=== PATIENT | female | born 1940 | race Caucasian/White ===

== ENCOUNTER 2016-03-28 17:39 | Emergency (ER) | payer MEDICARE, OTHER ==
[~2016-03-28] VITALS: Ht 157.5 cm; Wt 109.1 kg
[~2016-03-28 17:39] MED LIST: ACCUPRIL20TAB PO; AFRIN NASAL SPR15 ML NS; AFRIN NASAL SPRA3 ML NS; ALBUTEROL0.83 MG/ML IH; ALDACTONE 25MG25 M1 PO; ASPIRIN 81M81 MG/TA2 PO; ASPIRIN E.C. 8181 MG PO; BYDUREON P2 MG/0.65; CLARITIN 1010 MG/TAB PO; COREG 6.256.25 MG/TA PO; COREG12.5 MG PO; COZAAR 50MG50 MG/TAB PO; COZAAR100 MG PO; CRESTOR20 MG PO; CRESTOR40 MG PO; DETROL LA 2 MG2 MG PO; DEXILANT60 MG PO; DULERA1 AR1 IH; ENULOSE10 GM/151 PO; EPIPEN 2-PAK1 MG/ML IM; FLEXERIL5 MG PO; FLONASE NASAL S16 GM NS; FOSAMAX70 MG/75 M PO; GLUCAGEN HYPOKIT1 MG IJ; GLUCAGEN1 MG IJ; GLUCAGON EMERGEN1 M1 IJ; GLUCAGON EMERGEN1 MG IJ; GLUCOSAMINE500 M2 PO; GLUCOSE4 G1 PO; HCTZ 25MG TAB25 MG PO; IMODIUM 2MG CAPS2 MG PO; IMODIUM A-D2 MG PO; JANUVIA 100MG100 MG PO; LASIX 40MG TABL40 MG PO; LECITHIN PO; LEVEMIR FLEX100 U/ML SQ; LEVEMIR FLEXPEN SC; LEVEMIR100 U/ML SC; LEVEMIR100 U/ML SQ; LEXAPRO 10MG10 MG PO; LIDODERM 5% PATC1 EA TP; LOVAZA1 GM PO; MACRODANTIN100 PO; MILK OF MA400 MG/5 M PO; MOBIC 7.5MG7.5 MG PO; MUCINEX 60600 MG/TA1 PO; MYLANTA 150 ML150 M1 PO; NASACORT OTC NS; NASAL 30 ML30 M1 NS; NASAL SALINE 4444 ML NS; NASONEX SPRAY17 GM NS; NATURE'S BLEN1200 MG PO; NORCO 325 MG-51 TAB; NORCO 325 MG-51 TAB PO; NOVOLOG FLEX100 U/ML; NOVOLOG FLEX100 U/ML SQ; NYSTATIN POWDER15 GM TOP; PATANASE0.6% NS; PRESERVISION1 SGL PO; PRILOSEC 20MG20 MG PO; PROCARDIA XL90 MG PO; PROVENTIL0.09 MG/A1 IH; ROBITUSSIN A-C S1 M1 PO; RT ADVAIR 228 DISKUS IH; RT SPIRIVA18 MCG IH; SINGULAIR 110 MG/TAB PO; TEKTURNA300 MG PO; TRADJENTA5 MG PO; TRANDATE 100MG100 MG PO; TUDORZA IH; TYLENOL 325MG325 MG PO; TYLENOL ARTHRI650 M1 PO; VENTOLIN0.09 MG IH; VITAMIN B COMPL1 T16 PO; VITAMIN D 1001000 IU PO; VITAMIN D1000 IU PO; VITAMIN D32000 I1 PO; VOLTAREN GEL 1%1 TU TP; XYAL5 MG PO; XYZAL5 MG PO; ZANTAC 150150 MG; ZITHROMAX 250M250 MG PO; ZITHROMAX Z PA250 MG PO; ZYRTEC 10MG10 MG PO; [UNRECOGNIZED DRUG - OTHER]; [UNRECOGNIZED DRUG - OTHER] PO
[2016-03-28 17:42] VITALS: TEMP 98.6
[2016-03-28 18:24] LABS: HEMATOCRIT 38.3 % (37.0-47.0); HEMOGLOBIN 12.9 g/dl (12.5-16.0); MEAN CELL VOLUME 86 fl (80.0-100.0); MEAN CORPUSCULAR HEMOGLOBIN 29 pg (27.0-31.0); MEAN CORPUSCULAR HGB CONC 34 g/dl (33.0-37.0); MEAN PLATELET VOLUME 9.7 fl (7.4-10.4); PLATELET COUNT 234 K/mm3 (130-400); RED BLOOD COUNT 4.46 M/mm3 (4.10-5.30); WHITE BLOOD COUNT 8.5 K/mm3 (4.8-10.8)
[2016-03-28 18:25] LABS: ADD PATHOLOGY DIFF REVIEW NO
[2016-03-28 18:33] LABS: BILIRUBIN,TOTAL 0.6 mg/dL (0.0-1.0); C-REACTIVE PROTEIN 0.7 mg/dL (0.0-0.9); CREATININE, serum 1.58 mg/dL (0.52-1.25); POTASSIUM 4.2 mmol/L (3.4-5.0); TOTAL PROTEIN 7.4 gm/dL (6.4-8.2)
[2016-03-28 18:38] LABS: INFLUENZA B NEGATIVE
[2016-03-28 18:55] LABS: BAND 7 % (0-10); BASOPHIL 4 % (0-2); NEUTROPHILS 56 % (42.0-75.2); TOTAL CELLS COUNTED 100
[2016-03-28 18:57] LABS: ANISOCYTOSIS 1+; MICROCYTOSIS 1+; POIKILOCYTOSIS 1+
[2016-03-28] MEDS ORDERED: PREDNISONE20 MG PO (19:52)
[2016-03-28] MEDS ORDERED: NORCO 325 MG-51 TAB PO (19:52)
[2016-03-28] MEDS ORDERED: ZITHROMAX 250M250 MG PO (19:52)
[2016-03-28 20:17] VITALS: BP 154/71; PULSE 66
== END 2016-03-28 20:19 | disposition home or self-care (01) ==
LOC: COL.ER 17:39
PROVIDERS: Emergency Medicine
DX: J44.0 Chronic obstructive pulmonary disease with (acute) lower respiratory infection (principal); J20.9 Acute bronchitis, unspecified; J45.909 Unspecified asthma, uncomplicated; E11.9 Type 2 diabetes mellitus without complications; I10 Essential (primary) hypertension; Z79.84 Long term (current) use of oral hypoglycemic drugs
CPT/HCPCS: J7512

== ENCOUNTER → 2016-05-17 | Outpatient (CLI) | payer MEDICARE, OTHER ==
[~2016-05-17] MED LIST changes: +ADALAT CC90 MG PO; +AEROSPAN80 MCG/Act IH; +ALMACONE 360 M360 ML PO; +AMOXICILLIN/CLA1 TA1 PO; +AMOXICILLIN875 MG PO; +ANTI-DIARRHEAL2 MG PO; +ASTELIN NASAL S34 ML NS; +BACTROBAN15 GM TOP; +COREG 25MG25 MG/TAB PO; +DENTA 5000 PLUS1.1% DT; +DETROL 2MG TAB2 MG PO; +DIFLUCAN 100MG100 MG PO; +FOSAMAX 35MG35 MG PO; +GLUCOSAMINE CHO1 TAB PO; +GLUCOSAMINE SU500 M2 PO; +MASON NATURAL2000 IU; +MIRALAX PA17 GM/Dose PO; +MONISTAT VG; +MUCINEX1200 MG PO; +NOVOLOG 100U100 U/M1 SQ; +PHENERGAN W/CO120 M1 PO; +PREDNISONE20 MG PO; +PRIL40 PO; +PROBIOTIC-SUNMARK; +REGLAN 5MG T5 MG/TAB PO; +RT ADVAIR 528 DISKUS IH; +SPIRIVA RESPIMAT4 GM IH; +VITAMIN B COMPL1 SGL PO
== END ==
LOC: COL.RAD 05:58
DX: K21.9 Gastro-esophageal reflux disease without esophagitis (principal); R06.02 Shortness of breath; R07.89 Other chest pain; F41.8 Other specified anxiety disorders
CPT/HCPCS: A9541

== ENCOUNTER 2016-10-07 13:03 | Emergency (ER) | payer MEDICARE, OTHER ==
[~2016-10-07] VITALS: Ht 157.5 cm; Wt 97.7 kg
[~2016-10-07 13:03] MED LIST changes: -ADALAT CC90 MG PO; -AEROSPAN80 MCG/Act IH; -ALMACONE 360 M360 ML PO; -AMOXICILLIN/CLA1 TA1 PO; -AMOXICILLIN875 MG PO; -ANTI-DIARRHEAL2 MG PO; -ASTELIN NASAL S34 ML NS; -BACTROBAN15 GM TOP; -COREG 25MG25 MG/TAB PO; -DENTA 5000 PLUS1.1% DT; -DETROL 2MG TAB2 MG PO; -DIFLUCAN 100MG100 MG PO; -FOSAMAX 35MG35 MG PO; -GLUCOSAMINE CHO1 TAB PO; -GLUCOSAMINE SU500 M2 PO; -MASON NATURAL2000 IU; -MIRALAX PA17 GM/Dose PO; -MONISTAT VG; -MUCINEX1200 MG PO; -NOVOLOG 100U100 U/M1 SQ; -PHENERGAN W/CO120 M1 PO; -PRIL40 PO; -PROBIOTIC-SUNMARK; -REGLAN 5MG T5 MG/TAB PO; -RT ADVAIR 528 DISKUS IH; -SPIRIVA RESPIMAT4 GM IH; -VITAMIN B COMPL1 SGL PO
[2016-10-07 13:07] VITALS: TEMP 98.1
[2016-10-07] MEDS ORDERED: AMOXICILLIN875 MG PO (13:37)
[2016-10-07] MEDS ORDERED: PRESERVISION1 SGL PO (13:39)
[2016-10-07] MEDS ORDERED: ASTELIN NASAL S34 ML NS (13:41)
[2016-10-07] MEDS ORDERED: BACTROBAN15 GM TOP (13:42)
[2016-10-07] MEDS ORDERED: DETROL 2MG TAB2 MG PO (13:44)
[2016-10-07] MEDS ORDERED: DENTA 5000 PLUS1.1% DT (13:45)
[2016-10-07] MEDS ORDERED: DIFLUCAN 100MG100 MG PO (13:46)
[2016-10-07] MEDS ORDERED: AEROSPAN80 MCG/Act IH (13:55)
[2016-10-07] MEDS ORDERED: GLUCOSAMINE SU500 M2 PO (13:57)
[2016-10-07] MEDS ORDERED: ANTI-DIARRHEAL2 MG PO (13:58)
[2016-10-07] MEDS ORDERED: MONISTAT VG (14:02)
[2016-10-07] MEDS ORDERED: MUCINEX 60600 MG/TA1 PO (14:04)
[2016-10-07] MEDS ORDERED: NOVOLOG FLEX100 U/ML SQ (14:04)
[2016-10-07] MEDS ORDERED: PRIL40 PO (14:05)
[2016-10-07] MEDS ORDERED: PROBIOTIC-SUNMARK (14:05)
[2016-10-07 14:52] VITALS: BP 136/60; PULSE 70
== END 2016-10-07 14:53 | disposition home or self-care (01) ==
LOC: COL.ER 13:03
DX: S83.91XA Sprain of unspecified site of right knee, initial encounter (principal); I10 Essential (primary) hypertension; E11.9 Type 2 diabetes mellitus without complications; J44.9 Chronic obstructive pulmonary disease, unspecified; M19.90 Unspecified osteoarthritis, unspecified site; Z79.4 Long term (current) use of insulin; X50.1XXA Overexertion from prolonged static or awkward postures, initial encounter

== ENCOUNTER 2016-10-23 10:23 | Inpatient (IN) | payer MEDICARE, OTHER ==
[~2016-10-23] VITALS: Ht 157.5 cm; Wt 99.4 kg
[~2016-10-23 10:23] MED LIST changes: +AEROSPAN80 MCG/Act IH; +AMOXICILLIN875 MG PO; +ANTI-DIARRHEAL2 MG PO; +ASTELIN NASAL S34 ML NS; +BACTROBAN15 GM TOP; +DENTA 5000 PLUS1.1% DT; +DETROL 2MG TAB2 MG PO; +DIFLUCAN 100MG100 MG PO; +GLUCOSAMINE SU500 M2 PO; +MONISTAT VG; +PRIL40 PO; +PROBIOTIC-SUNMARK
[2016-10-23 11:36] LABS: MEAN CELL VOLUME 91 fl (80.0-100.0); MEAN CORPUSCULAR HGB CONC 32 g/dl (33.0-37.0); MEAN PLATELET VOLUME 10.1 fl (7.4-10.4); PLATELET COUNT 281 K/mm3 (130-400); RED BLOOD COUNT 4.02 M/mm3 (4.10-5.30); REDCELL DISTRIBUTION WIDTH-CV 12.7 % (11.5-14.5); WHITE BLOOD COUNT 16.1 K/mm3 (4.8-10.8)
[2016-10-23 11:41] LABS: ADD PATHOLOGY DIFF REVIEW NO; HEMATOCRIT 36.4 % (37.0-47.0); HEMOGLOBIN 11.7 g/dl (12.5-16.0); MEAN CORPUSCULAR HEMOGLOBIN 29 pg (27.0-31.0)
[2016-10-23 11:49] LABS: PH 5 (5-8); SQUAMOUS EPITHELIAL None Seen /hpf; URINE APPEARANCE Hazy; URINE BACTERIA Rare /hpf; URINE BILIRUBIN Negative (NEGATIVE); URINE BLOOD Negative (NEGATIVE); URINE COLOR Yellow; URINE GLUCOSE Negative (NEGATIVE); URINE KETONE Negative (NEGATIVE); URINE RBC 0-2 /hpf; URINE UROBILINOGEN Negative (NEGATIVE); URINE WBC 0-2 /hpf
[2016-10-23 11:50] LABS: ALBUMIN 3.6 gm/dL (3.5-5.0); BILIRUBIN,TOTAL 0.6 mg/dL (0.0-1.0); C-REACTIVE PROTEIN 8.5 mg/dL (0.0-0.9); CALCIUM 9.7 mg/dL (8.4-10.2); CREATININE, serum 1.57 mg/dL (0.52-1.25); POTASSIUM 3.7 mmol/L (3.4-5.0); TOTAL PROTEIN 7.1 gm/dL (6.4-8.2)
[2016-10-23 11:58] LABS: INFLUENZA B NEGATIVE
[2016-10-23 13:35] LABS: BAND 42 % (0-10); METAMYELOCYTE 2 % (0-0); MYELOCYTE 4 % (0-0); NEUTROPHILS 37 % (42.0-75.2); PLATELET ESTIMATE NORMAL (NORMAL); TOTAL CELLS COUNTED 100
[2016-10-23] MEDS ORDERED: FLONASE NASAL S16 GM NS (13:37)
[2016-10-23] MEDS ORDERED: MIRALAX PA17 GM/Dose PO (13:59)
[2016-10-23] MEDS ORDERED: MOBIC 7.5MG7.5 MG PO (14:00)
[2016-10-23] MEDS ORDERED: REGLAN 5MG T5 MG/TAB PO (14:01)
[2016-10-23] MEDS ORDERED: MUCINEX1200 MG PO (14:02)
[2016-10-23] MEDS ORDERED: ADALAT CC90 MG PO (14:02)
[2016-10-23] MEDS ORDERED: NOVOLOG 100U100 U/M1 SQ (14:03)
[2016-10-23 15:38] VITALS: BP 126/50; PULSE 89; TEMP 99.9
[2016-10-23 21:17] VITALS: BP 92/59; PULSE 85; TEMP 100.6
[2016-10-23 23:35] VITALS: BP 126/45; PULSE 79; TEMP 99
[2016-10-24] VITALS (7 sets, daily range): BP systolic 103–147; BP diastolic 44–96; PULSE 66–113; TEMP 97.4–99.2
[2016-10-24] MEDS ORDERED: LEVEMIR100 U/ML SQ (06:58)
[2016-10-24 09:12] LABS: BASO % 0.2 % (0.0-2.0); EOS # 0.1 (0.0-0.7); EOS % 1.3 % (0-4.0); GRAN # 6.4 (1.4-6.5); GRAN % 62.9 % (42.2-75.2); LYMPH # 2.1 (1.2-3.4); LYMPH % 20.6 % (20.0-51.0); MEAN CELL VOLUME 93 fl (80.0-100.0); MEAN CORPUSCULAR HGB CONC 31 g/dl (33.0-37.0); MEAN PLATELET VOLUME 9.7 fl (7.4-10.4); MONO # 1.5 (0.1-0.6); MONO % 14.6 % (1.7-9.3); PLATELET COUNT 232 K/mm3 (130-400); RED BLOOD COUNT 3.44 M/mm3 (4.10-5.30); REDCELL DISTRIBUTION WIDTH-CV 12.9 % (11.5-14.5); WHITE BLOOD COUNT 10.2 K/mm3 (4.8-10.8)
[2016-10-24 09:15] LABS: HEMATOCRIT 31.9 % (37.0-47.0); MEAN CORPUSCULAR HEMOGLOBIN 29 pg (27.0-31.0)
[2016-10-24 09:17] LABS: CALCIUM 8.8 mg/dL (8.4-10.2); CREATININE, serum 1.47 mg/dL (0.52-1.25); POTASSIUM 3.7 mmol/L (3.4-5.0)
[2016-10-25 04:36] VITALS: BP 126/75; PULSE 118; TEMP 98.5
[2016-10-25 06:56] LABS: BASO # 0.1 (0.0-0.2); BASO % 0.4 % (0.0-2.0); EOS # 0.3 (0.0-0.7); EOS % 2.6 % (0-4.0); GRAN # 8.2 (1.4-6.5); GRAN % 70.2 % (42.2-75.2); LYMPH # 1.8 (1.2-3.4); MEAN CELL VOLUME 91 fl (80.0-100.0); MEAN CORPUSCULAR HGB CONC 32 g/dl (33.0-37.0); MEAN PLATELET VOLUME 10.3 fl (7.4-10.4); MONO # 1.3 (0.1-0.6); MONO % 11.5 % (1.7-9.3); PLATELET COUNT 262 K/mm3 (130-400); REDCELL DISTRIBUTION WIDTH-CV 12.7 % (11.5-14.5); WHITE BLOOD COUNT 11.7 K/mm3 (4.8-10.8)
[2016-10-25 06:59] LABS: HEMATOCRIT 32.9 % (37.0-47.0); HEMOGLOBIN 10.6 g/dl (12.5-16.0); MEAN CORPUSCULAR HEMOGLOBIN 29 pg (27.0-31.0)
[2016-10-25 07:09] LABS: CALCIUM 9.2 mg/dL (8.4-10.2); CREATININE, serum 1.26 mg/dL (0.52-1.25)
[2016-10-25 07:53] VITALS: BP 121/61; PULSE 74; TEMP 98.2
[2016-10-25] MEDS ORDERED: AMOXICILLIN/CLA1 TA1 PO (10:09)
[2016-10-25] MEDS ORDERED: PHENERGAN W/CO120 M1 PO (10:10)
[2016-10-25 12:44] VITALS: BP 141/55; PULSE 73; TEMP 97.3
== END 2016-10-25 15:38 | DRG 871 ==
LOC: COL.ER 10:23 → MEDICAL 12:52
PROVIDERS: Family Medicine; Physician Assistant
DX: A41.9 Sepsis, unspecified organism (principal); J18.9 Pneumonia, unspecified organism; E87.1 Hypo-osmolality and hyponatremia; Z68.41 Body mass index [BMI] 40.0-44.9, adult; N18.3 Chronic kidney disease, stage 3 (moderate); E11.65 Type 2 diabetes mellitus with hyperglycemia; J44.9 Chronic obstructive pulmonary disease, unspecified; T38.3X1A Poisoning by insulin and oral hypoglycemic [antidiabetic] drugs, accidental (unintentional), initial encounter; E86.1 Hypovolemia; I12.9 Hypertensive chronic kidney disease with stage 1 through stage 4 chronic kidney disease, or unspecified chronic kidney disease; E11.22 Type 2 diabetes mellitus with diabetic chronic kidney disease; D64.9 Anemia, unspecified; E66.01 Morbid (severe) obesity due to excess calories; Z79.4 Long term (current) use of insulin; Z99.81 Dependence on supplemental oxygen
CPT/HCPCS: 99223-AI; 99233-AI; 99239; J0456; J0696; J1644; J1815; J7030; J7050

== ENCOUNTER 2016-11-07 11:00 | Inpatient (IN) | payer MEDICARE, OTHER ==
[2016-11-07] VITALS (402 sets, daily range): BP systolic 108–118; BP diastolic 50–98; PULSE 79–91; TEMP 98.5–98.7; O2SAT 91–98
[~2016-11-07] VITALS: Ht 157.5 cm; Wt 95.4 kg
[~2016-11-07 11:00] MED LIST changes: +ADALAT CC90 MG PO; +AMOXICILLIN/CLA1 TA1 PO; +MIRALAX PA17 GM/Dose PO; +MUCINEX1200 MG PO; +NOVOLOG 100U100 U/M1 SQ; +PHENERGAN W/CO120 M1 PO; +REGLAN 5MG T5 MG/TAB PO
[2016-11-07 12:17] LABS: BASO % 0.4 % (0.0-2.0); EOS # 0.2 (0.0-0.7); EOS % 1.5 % (0-4.0); GRAN # 6.3 (1.4-6.5); GRAN % 64.3 % (42.2-75.2); HEMATOCRIT 38.2 % (37.0-47.0); HEMOGLOBIN 12.6 g/dl (12.5-16.0); LYMPH # 2.2 (1.2-3.4); LYMPH % 22.7 % (20.0-51.0); MEAN CELL VOLUME 91 fl (80.0-100.0); MEAN CORPUSCULAR HEMOGLOBIN 30 pg (27.0-31.0); MEAN CORPUSCULAR HGB CONC 33 g/dl (33.0-37.0); MEAN PLATELET VOLUME 10.2 fl (7.4-10.4); MONO # 1.1 (0.1-0.6); MONO % 10.9 % (1.7-9.3); PLATELET COUNT 288 K/mm3 (130-400); PROTHROMBIN TIME 10.8 SECONDS (9.7-12.8); RED BLOOD COUNT 4.19 M/mm3 (4.10-5.30); REDCELL DISTRIBUTION WIDTH-CV 13.1 % (11.5-14.5); WHITE BLOOD COUNT 9.8 K/mm3 (4.8-10.8)
[2016-11-07 12:22] LABS: ADJUSTED CALCIUM 10.1 mg/dL (8.4-10.2); ALANINE AMINOTRANSFERASE 23 U/L (9-52); ALKALINE PHOSPHATASE 65 U/L (50-136); ANION GAP 13 mmol/L (7-16); BILIRUBIN,TOTAL 0.6 mg/dL (0.0-1.0); BLOOD UREA NITROGEN 44 mg/dL (7-17); CALCIUM 10.1 mg/dL (8.4-10.2); CARBON DIOXIDE 25 mmol/L (22-30); CHLORIDE 104 mmol/L (98-107); CREATINE KINASE 37 U/L (30-135); CREATININE, serum 1.41 mg/dL (0.52-1.25); GLUCOSE 103 mg/dL (74-106); LIPASE 136 U/L (23-300); POTASSIUM 3.9 mmol/L (3.4-5.0); SODIUM 142 mmol/L (137-145); TOTAL PROTEIN 7.2 gm/dL (6.4-8.2)
[2016-11-07] MEDS ORDERED: HCTZ 25MG TAB25 MG PO (12:29)
[2016-11-07] MEDS ORDERED: TRADJENTA5 MG PO (12:29)
[2016-11-07] MEDS ORDERED: MASON NATURAL2000 IU (12:29)
[2016-11-07] MEDS ORDERED: ALDACTONE 25MG25 M1 PO ×2 (12:30→14:52)
[2016-11-07] MEDS ORDERED: ENULOSE10 GM/151 PO (12:31)
[2016-11-07] MEDS ORDERED: ALMACONE 360 M360 ML PO (12:32)
[2016-11-07 12:33] LABS: B-TYPE NATRIURETIC PEPTIDE 7010 pg/mL (0-450)
[2016-11-07 12:41] LABS: TROPONIN-I < 0.012 ng/mL (0.000-0.034)
[2016-11-07 13:10] LABS: PH 5 (5-8); SQUAMOUS EPITHELIAL 0-2 /hpf; URINE APPEARANCE Hazy; URINE BACTERIA None Seen /hpf; URINE BILIRUBIN Negative (NEGATIVE); URINE BLOOD Negative (NEGATIVE); URINE COLOR Yellow; URINE GLUCOSE Negative (NEGATIVE); URINE KETONE Negative (NEGATIVE); URINE RBC 0-2 /hpf; URINE UROBILINOGEN Negative (NEGATIVE); URINE WBC 0-2 /hpf
[2016-11-07] MEDS ORDERED: COREG 25MG25 MG/TAB PO (14:58)
[2016-11-07] MEDS ORDERED: FOSAMAX 35MG35 MG PO (14:59)
[2016-11-07] MEDS ORDERED: CLARITIN 1010 MG/TAB PO (14:59)
[2016-11-07] MEDS ORDERED: SPIRIVA RESPIMAT4 GM IH (15:00)
[2016-11-07] MEDS ORDERED: PRILOSEC 20MG20 MG PO (15:01)
[2016-11-07] MEDS ORDERED: RT ADVAIR 528 DISKUS IH (15:01)
[2016-11-07] MEDS ORDERED: GLUCOSAMINE CHO1 TAB PO (15:03)
[2016-11-07] MEDS ORDERED: NATURE'S BLEN1200 MG PO (15:04)
[2016-11-07] MEDS ORDERED: VITAMIN B COMPL1 SGL PO (15:04)
[2016-11-07] MEDS ORDERED: DETROL LA 2 MG2 MG PO (15:06)
[2016-11-08] VITALS (382 sets, daily range): BP systolic 113–133; BP diastolic 45–86; PULSE 65–93; TEMP 97.4–98.8; O2SAT 89–98
[2016-11-08 06:01] LABS: HEMATOCRIT 38.7 % (37.0-47.0); HEMOGLOBIN 12.4 g/dl (12.5-16.0); MEAN CELL VOLUME 92 fl (80.0-100.0); MEAN CORPUSCULAR HEMOGLOBIN 30 pg (27.0-31.0); MEAN CORPUSCULAR HGB CONC 32 g/dl (33.0-37.0); MEAN PLATELET VOLUME 10.3 fl (7.4-10.4); PLATELET COUNT 260 K/mm3 (130-400); RED BLOOD COUNT 4.19 M/mm3 (4.10-5.30); REDCELL DISTRIBUTION WIDTH-CV 13.1 % (11.5-14.5); WHITE BLOOD COUNT 8.5 K/mm3 (4.8-10.8)
[2016-11-08 06:16] LABS: ADJUSTED CALCIUM 10.4 mg/dL (8.4-10.2); ALBUMIN 3.7 gm/dL (3.5-5.0); BILIRUBIN,TOTAL 0.6 mg/dL (0.0-1.0); CALCIUM 10.2 mg/dL (8.4-10.2); CREATININE, serum 1.37 mg/dL (0.52-1.25); POTASSIUM 3.7 mmol/L (3.4-5.0); TOTAL PROTEIN 6.7 gm/dL (6.4-8.2)
[2016-11-08 06:46] LABS: THYROID STIMULATING HORMONE 1.27 uIU/mL (0.465-4.680)
[2016-11-09] VITALS (8 sets, daily range): BP systolic 132–153; BP diastolic 45–92; PULSE 61–75; TEMP 97.1–98.3
[2016-11-09 08:19] LABS: CALCIUM 9.9 mg/dL (8.4-10.2); CREATININE, serum 1.27 mg/dL (0.52-1.25); POTASSIUM 3.9 mmol/L (3.4-5.0)
[2016-11-10 04:26] VITALS: BP 148/61; PULSE 81; TEMP 97.9
[2016-11-10 09:00] VITALS: BP 144/64; PULSE 86; TEMP 98.1
[2016-11-10 09:33] LABS: CALCIUM 10.1 mg/dL (8.4-10.2); CREATININE, serum 1.15 mg/dL (0.52-1.25); POTASSIUM 4.5 mmol/L (3.4-5.0)
[2016-11-10 12:11] VITALS: BP 147/58; PULSE 75; TEMP 98.3
[2016-11-10 15:00] VITALS: BP 147/58; PULSE 75; TEMP 98.3
[2016-11-10] MEDS ORDERED: MULTAQ400 MG PO (15:07)
[2016-11-10] MEDS ORDERED: LIPITOR 80MG80 MG PO (15:08)
[2016-11-10] MEDS ORDERED: PREDNISONE10 MG PO (15:09)
[2016-11-10] MEDS ORDERED: TESSALON P100 MG/CAP PO (15:09)
[2016-11-10] MEDS ORDERED: ELIQUIS 5MG PO (15:10)
[2016-11-10] MEDS ORDERED: PREDNISONE20 MG PO (15:12)
== END 2016-11-10 15:50 | disposition home health service (06) | DRG 310 ==
LOC: COL.ER 11:00 → ICU 13:16 → MEDICAL 11-08 13:10
PROVIDERS: Emergency Medicine; Internal Medicine Cardiovascular Disease; Nurse Practitioner
PROC: 5A2204Z Restoration of Cardiac Rhythm, Single (ICD-10-PCS; principal; 2016-11-08)
DX: I48.91 Unspecified atrial fibrillation (principal); J44.9 Chronic obstructive pulmonary disease, unspecified; I10 Essential (primary) hypertension; G47.33 Obstructive sleep apnea (adult) (pediatric); M25.561 Pain in right knee; E11.22 Type 2 diabetes mellitus with diabetic chronic kidney disease; I12.9 Hypertensive chronic kidney disease with stage 1 through stage 4 chronic kidney disease, or unspecified chronic kidney disease; N18.9 Chronic kidney disease, unspecified; R05 Cough; R53.1 Weakness; Z99.81 Dependence on supplemental oxygen; Z79.4 Long term (current) use of insulin
CPT/HCPCS: 99223-AI; 99232-AI; 99239; J1650; J1815; J2250; J2920; J3010; J7050

== ENCOUNTER → 2017-03-21 | Outpatient (REF) ==
[~2017-03-21] MED LIST changes: +ALMACONE 360 M360 ML PO; +AMOXICILLIN 8751 TAB PO; +COLACE 100100 MG/CAP PO; +COREG 25MG25 MG/TAB PO; +ELIQUIS 2.5 PO; +ELIQUIS 5MG PO; +FOSAMAX 35MG35 MG PO; +GLUCOSAMINE & C1 CA2 PO; +GLUCOSAMINE CHO1 TAB PO; +LIPITOR 80MG80 MG PO; +MASON NATURAL2000 IU; +MULTAQ400 MG PO; +OMEGA-31 SGL PO; +PREDNISONE10 MG PO; +PROAIR HFA0.09 MG/AC IH; +PROBIOTIC-SUNMARK PO; +RT ADVAIR 528 DISKUS IH; +SPIRIVA RE2.5 MCG/Ac IH; +SPIRIVA RESPIMAT4 GM IH; +TESSALON P100 MG/CAP PO; +VITAMIN B COMPL1 SGL PO
[2017-03-21 09:39] LABS: MEAN CELL VOLUME 91 fl (80.0-100.0); MEAN CORPUSCULAR HGB CONC 33 g/dl (33.0-37.0); MEAN PLATELET VOLUME 9.8 fl (7.4-10.4); PLATELET COUNT 319 K/mm3 (130-400); RED BLOOD COUNT 3.47 M/mm3 (4.10-5.30); REDCELL DISTRIBUTION WIDTH-CV 12.3 % (11.5-14.5)
[2017-03-21 09:40] LABS: HEMATOCRIT 31.5 % (37.0-47.0); HEMOGLOBIN 10.3 g/dl (12.5-16.0); MEAN CORPUSCULAR HEMOGLOBIN 30 pg (27.0-31.0)
[2017-03-21 10:07] LABS: ALBUMIN 3.5 gm/dL (3.5-5.0); BILIRUBIN,TOTAL 0.8 mg/dL (0.0-1.0); CALCIUM 10.7 mg/dL (8.4-10.2); CREATININE, serum 1.42 mg/dL (0.52-1.25); POTASSIUM 5.3 mmol/L (3.4-5.0); TOTAL PROTEIN 6.2 gm/dL (6.4-8.2)
[2017-03-21 10:50] LABS: BAND 35 % (0-10); LYMPHOCYTE 22 % (20.0-51.0); METAMYELOCYTE 1 % (0-0); MYELOCYTE 1 % (0-0); NEUTROPHILS 39 % (42.0-75.2)
[2017-03-21 10:51] LABS: PLATELET ESTIMATE NORMAL (NORMAL)
== END ==
LOC: ZCOL.LAB 09:26
PROVIDERS: Internal Medicine
DX: N17.9 Acute kidney failure, unspecified (principal); R00.1 Bradycardia, unspecified

== ENCOUNTER → 2017-03-22 | Outpatient (REF) ==
[2017-03-22 10:45] LABS: BASO % 0.2 % (0.0-2.0); EOS # 0.1 (0.0-0.7); EOS % 0.8 % (0-4.0); GRAN # 9.9 (1.4-6.5); GRAN % 72.3 % (42.2-75.2); LYMPH % 14.3 % (20.0-51.0); MEAN CELL VOLUME 90 fl (80.0-100.0); MEAN CORPUSCULAR HGB CONC 33 g/dl (33.0-37.0); MEAN PLATELET VOLUME 9.8 fl (7.4-10.4); MONO # 1.5 (0.1-0.6); MONO % 10.9 % (1.7-9.3); PLATELET COUNT 349 K/mm3 (130-400); RED BLOOD COUNT 3.54 M/mm3 (4.10-5.30); REDCELL DISTRIBUTION WIDTH-CV 12.4 % (11.5-14.5)
[2017-03-22 10:47] LABS: HEMOGLOBIN 10.5 g/dl (12.5-16.0); MEAN CORPUSCULAR HEMOGLOBIN 30 pg (27.0-31.0)
[2017-03-22 11:01] LABS: ALBUMIN 3.4 gm/dL (3.5-5.0); BILIRUBIN,TOTAL 0.5 mg/dL (0.0-1.0); CALCIUM 10.4 mg/dL (8.4-10.2); CREATININE, serum 1.61 mg/dL (0.52-1.25); POTASSIUM 4.9 mmol/L (3.4-5.0); TOTAL PROTEIN 6.2 gm/dL (6.4-8.2)
== END ==
LOC: ZCOL.LAB 10:26
PROVIDERS: Internal Medicine
DX: N17.9 Acute kidney failure, unspecified (principal)

== ENCOUNTER → 2017-03-24 | Outpatient (REF) ==
[2017-03-24 09:59] LABS: MEAN CELL VOLUME 91 fl (80.0-100.0); MEAN CORPUSCULAR HGB CONC 33 g/dl (33.0-37.0); MEAN PLATELET VOLUME 9.8 fl (7.4-10.4); PLATELET COUNT 326 K/mm3 (130-400); RED BLOOD COUNT 3.47 M/mm3 (4.10-5.30); REDCELL DISTRIBUTION WIDTH-CV 12.6 % (11.5-14.5)
[2017-03-24 10:15] LABS: HEMATOCRIT 31.7 % (37.0-47.0); HEMOGLOBIN 10.4 g/dl (12.5-16.0); MEAN CORPUSCULAR HEMOGLOBIN 30 pg (27.0-31.0)
[2017-03-24 10:35] LABS: ALBUMIN 3.3 gm/dL (3.5-5.0); BILIRUBIN,TOTAL 0.7 mg/dL (0.0-1.0); CALCIUM 9.4 mg/dL (8.4-10.2); CREATININE, serum 1.5 mg/dL (0.52-1.25); POTASSIUM 4.9 mmol/L (3.4-5.0)
== END ==
LOC: ZCOL.LAB 09:55
PROVIDERS: Internal Medicine
DX: N17.9 Acute kidney failure, unspecified (principal); J32.9 Chronic sinusitis, unspecified

== ENCOUNTER → 2017-03-25 | Outpatient (REF) ==
[2017-03-25 09:15] LABS: CALCIUM 9.4 mg/dL (8.4-10.2); CREATININE, serum 1.5 mg/dL (0.52-1.25)
== END ==
LOC: ZCOL.LAB 08:20
PROVIDERS: Internal Medicine
DX: Z01.89 Encounter for other specified special examinations (principal)

== ENCOUNTER → 2017-03-27 | Outpatient (REF) | LOC: ZCOL.LAB 08:29 | DX: Z53.8 Procedure and treatment not carried out for other reasons (principal); N17.9 Acute kidney failure, unspecified ==

== ENCOUNTER → 2017-03-27 | Outpatient (REF) ==
[2017-03-27 11:18] LABS: CALCIUM 8.8 mg/dL (8.4-10.2); CREATININE, serum 1.28 mg/dL (0.52-1.25); POTASSIUM 5.3 mmol/L (3.4-5.0)
== END ==
LOC: ZCOL.LAB 10:36
PROVIDERS: Internal Medicine
DX: N17.9 Acute kidney failure, unspecified (principal)

== ENCOUNTER → 2017-03-28 | Outpatient (REF) | LOC: ZCOL.LAB 08:52 | DX: E87.1 Hypo-osmolality and hyponatremia (principal) ==

== ENCOUNTER → 2017-03-29 | Outpatient (REF) ==
[2017-03-29 09:06] LABS: CALCIUM 9.7 mg/dL (8.4-10.2); CREATININE, serum 1.29 mg/dL (0.52-1.25); POTASSIUM 5.2 mmol/L (3.4-5.0)
== END ==
LOC: ZCOL.LAB 08:30
PROVIDERS: Internal Medicine
DX: E87.1 Hypo-osmolality and hyponatremia (principal)

== ENCOUNTER → 2018-06-28 | Outpatient (CLI) | payer MEDICARE, OTHER ==
[~2018-06-28] MED LIST changes: +CEPHALEXIN500 M1 PO; +CRESTOR 10MG10 MG PO; +LASIX 20MG TABL20 MG PO; +NORVASC 5MG5 MG/TAB PO; +PROBIOTIC FORMU1 CAP PO; +RT ALBUTER2.5 MG/0.5 IH; +VITAMIN D 50,1.25 MG PO
== END ==
LOC: COL.RAD 07:22
DX: K31.84 Gastroparesis (principal); K21.9 Gastro-esophageal reflux disease without esophagitis
CPT/HCPCS: A9541

== ENCOUNTER 2018-09-12 15:56 | Emergency (ER) | payer MEDICARE, OTHER ==
[~2018-09-12] VITALS: Ht 157.5 cm; Wt 93.6 kg
[2018-09-12 16:00] VITALS: TEMP 98.1
[2018-09-12] MEDS ORDERED: [UNRECOGNIZED DRUG - OTHER] (16:33)
[2018-09-12] MEDS ORDERED: MULTAQ400 MG PO (16:34)
[2018-09-12] MEDS ORDERED: NATURE'S BLEN1200 MG PO (16:36)
[2018-09-12] MEDS ORDERED: COZAAR 50MG50 MG/TAB PO (16:44)
[2018-09-12 16:45] LABS: HEMATOCRIT 37.8 % (37.0-47.0); HEMOGLOBIN 11.9 g/dl (12.5-16.0); MEAN CELL VOLUME 90 fl (80.0-100.0); MEAN CORPUSCULAR HEMOGLOBIN 29 pg (27.0-31.0); MEAN CORPUSCULAR HGB CONC 32 g/dl (33.0-37.0); MEAN PLATELET VOLUME 10.1 fl (7.4-10.4); PLATELET COUNT 226 K/mm3 (130-400); RED BLOOD COUNT 4.18 M/mm3 (4.10-5.30); REDCELL DISTRIBUTION WIDTH-CV 12.8 % (11.5-14.5)
[2018-09-12 16:51] LABS: ALANINE AMINOTRANSFERASE 68 U/L (9-52); ALBUMIN 3.8 gm/dL (3.5-5.0); ALKALINE PHOSPHATASE 109 U/L (50-136); ANION GAP 11 mmol/L (7-16); AST,SGOT 91 U/L (15-37); BILIRUBIN,TOTAL 0.7 mg/dL (0.0-1.0); BLOOD UREA NITROGEN 34 mg/dL (7-17); CALCIUM 9.9 mg/dL (8.4-10.2); CARBON DIOXIDE 28 mmol/L (22-30); CHLORIDE 100 mmol/L (98-107); CREATININE, serum 2.24 (0.52-1.25); GLUCOSE 54 mg/dL (74-106); LIPASE 54 U/L (23-300); POTASSIUM 3.5 mmol/L (3.4-5.0); SODIUM 140 mmol/L (137-145); TOTAL PROTEIN 6.9 gm/dL (6.4-8.2)
[2018-09-12] MEDS ORDERED: IMODIUM A-D2 MG PO (16:53)
[2018-09-12 17:07] LABS: TROPONIN-I < 0.012 ng/mL (0.000-0.035)
[2018-09-12 17:16] LABS: COLLECTION METHOD CATHETER
[2018-09-12 17:30] VITALS: BP 119/72
[2018-09-12 17:33] LABS: MUCOUS Present /lpf; PH 5 (5-8); SQUAMOUS EPITHELIAL None Seen /hpf; URINE APPEARANCE Hazy; URINE BACTERIA Rare /hpf; URINE BILIRUBIN Negative (NEGATIVE); URINE BLOOD Negative (NEGATIVE); URINE COLOR Amber; URINE GLUCOSE Negative (NEGATIVE); URINE KETONE Negative (NEGATIVE); URINE LEUKOCYTE ESTERASE Negative (NEGATIVE); URINE NITRATE Negative (NEGATIVE); URINE PROTEIN(semi-quant) Negative (NEGATIVE); URINE RBC 0-2 /hpf; URINE UROBILINOGEN Negative (NEGATIVE)
[2018-09-12 18:34] LABS: BAND 8 % (0-10); EOSINOPHIL 1 % (0-4); LYMPHOCYTE 12 % (20.0-51.0); NEUTROPHILS 69 % (42.0-75.2); PLATELET ESTIMATE NORMAL (NORMAL)
[2018-09-12] MEDS ORDERED: MIRALAX238G PO (19:52)
[2018-09-12 21:10] VITALS: PULSE 68
== END 2018-09-12 21:10 | disposition home or self-care (01) ==
LOC: COL.ER 15:56
PROVIDERS: Emergency Medicine
DX: E11.649 Type 2 diabetes mellitus with hypoglycemia without coma (principal); K59.00 Constipation, unspecified; I12.9 Hypertensive chronic kidney disease with stage 1 through stage 4 chronic kidney disease, or unspecified chronic kidney disease; E11.22 Type 2 diabetes mellitus with diabetic chronic kidney disease; N18.9 Chronic kidney disease, unspecified; E78.5 Hyperlipidemia, unspecified; M79.7 Fibromyalgia; K21.9 Gastro-esophageal reflux disease without esophagitis; Z79.82 Long term (current) use of aspirin; Z79.4 Long term (current) use of insulin
CPT/HCPCS: J7040

== ENCOUNTER 2018-10-07 23:38 | Inpatient (IN) | payer MEDICARE, OTHER ==
[~2018-10-07] VITALS: Ht 157.5 cm; Wt 104.1 kg
[~2018-10-07 23:38] MED LIST changes: -GLUCOSAMINE & C1 CA2 PO; +GLUCOSAMINE & C1 TAB PO; +MIRALAX238G PO; +OMEGA-3 FISH1000 MG PO; -OMEGA-31 SGL PO; +[UNRECOGNIZED DRUG - OTHER]
[2018-10-08] VITALS (735 sets, daily range): BP systolic 143–175; BP diastolic 43–65; PULSE 57–63; TEMP 97–98.8; O2SAT 87–100
[2018-10-08 00:20] LABS: COLLECTION METHOD CATHETER
[2018-10-08 00:25] LABS: BASO # 0.1 (0.0-0.2); BASO % 0.5 % (0.0-2.0); EOS # 0.1 (0.0-0.7); EOS % 0.8 % (0-4.0); GRAN # 12.1 (1.4-6.5); GRAN % 76.2 % (42.2-75.2); HEMOGLOBIN 11.6 g/dl (12.5-16.0); LYMPH # 1.5 (1.2-3.4); LYMPH % 9.3 % (20.0-51.0); MEAN CELL VOLUME 88 fl (80.0-100.0); MEAN CORPUSCULAR HEMOGLOBIN 29 pg (27.0-31.0); MEAN CORPUSCULAR HGB CONC 32 g/dl (33.0-37.0); MEAN PLATELET VOLUME 10.3 fl (7.4-10.4); MONO % 12.4 % (1.7-9.3); PLATELET COUNT 277 K/mm3 (130-400); RED BLOOD COUNT 4.06 M/mm3 (4.10-5.30); REDCELL DISTRIBUTION WIDTH-CV 13.6 % (11.5-14.5)
[2018-10-08 00:26] LABS: ARTERIAL BLD GAS O2 SATURATION 97.1 % (92-100); ARTERIAL BLD GAS TCO2 CT 26.4; ARTERIAL BLOOD GAS HCO3 25.2 meq/L (22-26); ARTERIAL BLOOD GAS PCO2 38.9 mmHg (35-45); ARTERIAL BLOOD GAS PO2 98.1 mmHg (80-100); ARTERIAL BLOOD GAS pH 7.43 (7.35-7.45)
[2018-10-08 00:34] LABS: ALBUMIN 3.9 gm/dL (3.5-5.0); BILIRUBIN,TOTAL 0.6 mg/dL (0.0-1.0); CALCIUM 9.5 mg/dL (8.4-10.2); CREATININE, serum 2.4 (0.52-1.25); POTASSIUM 4.4 mmol/L (3.4-5.0); TOTAL PROTEIN 7.1 gm/dL (6.4-8.2)
[2018-10-08 00:45] LABS: TROPONIN-I 0.013 ng/mL (0.000-0.035)
[2018-10-08 00:47] LABS: HEMATOCRIT 35.8 % (37.0-47.0)
[2018-10-08 00:51] LABS: AMORPHOUS CRYSTAL Present /uL; MUCOUS Present /lpf; PH 5 (5-8); SQUAMOUS EPITHELIAL 0-2 /hpf; URINE APPEARANCE Cloudy; URINE BACTERIA None Seen /hpf; URINE BILIRUBIN Negative (NEGATIVE); URINE BLOOD Negative (NEGATIVE); URINE COLOR Yellow; URINE GLUCOSE Negative (NEGATIVE); URINE KETONE Negative (NEGATIVE); URINE LEUKOCYTE ESTERASE Negative (NEGATIVE); URINE NITRATE Negative (NEGATIVE); URINE PROTEIN(semi-quant) 3+ (NEGATIVE); URINE RBC 0-2 /hpf; URINE UROBILINOGEN Negative (NEGATIVE)
[2018-10-08 01:11] LABS: INR 0.9 (0.8-3.0); PROTHROMBIN TIME 10.9 SECONDS (9.7-12.8)
[2018-10-08 01:14] LABS: PARTIAL THROMBOPLASTIN TIME 29.9 SECONDS (26.0-37.0)
[2018-10-08] MEDS ORDERED: MYRBETR50MG PO (02:35)
--- NOTE | 2018-10-08 02:45 | NUR ---
RECEIVED REPORT FORM DRE PRINGLE.
--- NOTE | 2018-10-08 02:55 | NUR ---
PT ARRIVED IN UNIT VIA STRETCHEER, ON BIPAP WITH 45% FIO2, SATTING 98%. PT ALERT AND ORIENTEDX4, DENIES ANY PAIN AT THIS TIME. PT ORIENTED TO ROOM AND HOSPITAL POLICY, VERBALIZED UNDERSTANDING.
[2018-10-08] MEDS ORDERED: EPIPEN 2-PAK1 MG/ML IM (03:39)
[2018-10-08] MEDS ORDERED: NYAMYC100000 U/G TP (03:46)
[2018-10-08] MEDS ORDERED: SPIRIVA RE2.5 MCG/Ac IH (03:51)
[2018-10-08] MEDS ORDERED: LIQUIFILM TEARS15 ML OU (03:52)
[2018-10-08] MEDS ORDERED: RT ALBUTER2.5 MG/0.5 IH (03:56)
[2018-10-08] MEDS ORDERED: COREG12.5 MG PO (03:58)
[2018-10-08] MEDS ORDERED: LEVEMIR FLEX100 U/ML SQ (04:01)
[2018-10-08] MEDS ORDERED: LASIX 20MG TABL20 MG PO (04:04)
[2018-10-08] MEDS ORDERED: MIRALAX PA17 GM/Dose PO (04:06)
[2018-10-08] MEDS ORDERED: ZANTAC 150MG T150 MG PO (04:07)
[2018-10-08] MEDS ORDERED: B COMPLEX #11 TA1 PO (04:08)
[2018-10-08] MEDS ORDERED: SIMBRINZA 0.2%-18 ML OP (04:09)
[2018-10-08] MEDS ORDERED: LUMIGAN 2.5 ML2.5 M1 OP (04:11)
--- NOTE | 2018-10-08 04:11 | NUR ---
PT'S MEDDICATION LABELED, DRAPERY HEMMER AUTOMATIC NOTIFIED TO BRING TO [facility].
[2018-10-08] MEDS ORDERED: PROTONIX 40MG T40 MG PO (04:12)
[2018-10-08] MEDS ORDERED: PROAIR HFA0.09 MG/AC IH (04:14)
[2018-10-08] MEDS ORDERED: XYZAL5 MG PO (04:16)
[2018-10-08] MEDS ORDERED: TIMOLOL MALEATE5 M1 OP (04:17)
[2018-10-08] MEDS ORDERED: TOBRADEX EYE DRO5 ML OP (04:19)
[2018-10-08 05:06] LABS: ARTERIAL BLD GAS O2 SATURATION 97.9 % (92-100); ARTERIAL BLD GAS TCO2 CT 24.9; ARTERIAL BLOOD GAS BASE EXCESS -0.1 (-2-2); ARTERIAL BLOOD GAS HCO3 23.8 meq/L (22-26); ARTERIAL BLOOD GAS PCO2 36.3 mmHg (35-45); ARTERIAL BLOOD GAS PO2 119.5 mmHg (80-100); ARTERIAL BLOOD GAS pH 7.44 (7.35-7.45)
[2018-10-08 06:06] LABS: BASO % 0.3 % (0.0-2.0); GRAN # 10.4 (1.4-6.5); GRAN % 89.2 % (42.2-75.2); LYMPH # 0.9 (1.2-3.4); LYMPH % 7.7 % (20.0-51.0); MEAN CELL VOLUME 88 fl (80.0-100.0); MEAN CORPUSCULAR HEMOGLOBIN 29 pg (27.0-31.0); MEAN CORPUSCULAR HGB CONC 32 g/dl (33.0-37.0); MEAN PLATELET VOLUME 10.5 fl (7.4-10.4); MONO # 0.2 (0.1-0.6); MONO % 1.9 % (1.7-9.3); PLATELET COUNT 228 K/mm3 (130-400); RED BLOOD COUNT 3.86 M/mm3 (4.10-5.30); REDCELL DISTRIBUTION WIDTH-CV 13.4 % (11.5-14.5)
[2018-10-08 06:09] LABS: HEMATOCRIT 34.1 % (37.0-47.0)
[2018-10-08 06:19] LABS: ALBUMIN 3.7 gm/dL (3.5-5.0); BILIRUBIN,TOTAL 0.8 mg/dL (0.0-1.0); CALCIUM 9.6 mg/dL (8.4-10.2); CREATININE, serum 2.34 (0.52-1.25); POTASSIUM 4.3 mmol/L (3.4-5.0); TOTAL PROTEIN 6.8 gm/dL (6.4-8.2)
[2018-10-08] MEDS ORDERED: LASIX 40MG TABL40 MG PO (06:55)
--- NOTE | 2018-10-08 07:00 | NUR ---
Bedside shift report received from DRE Sarah. Patient is on BiPAP at this time, vital signs are stable. Full assessment completed. Patient is in no apparent distress. Call light placed within reach. Bed in lowest position. Side rails up x3.
--- NOTE | 2018-10-08 11:14 | NUR ---
SW attended clincal rounds to discuss discharge planning. Patient lives at [facility]. Patient's PCP is Dr Jeronimo Casey at [facility]. Adilson obtains [facility] from [facility]. Patient reports she uses a cane in her room and a four wheeled walker to appopintments and around [place]. Patient has a life alert as well. Patient does not drive anymore due to her vision but reports she uses the [employer] bus or transportation provided by [place]. Patient reports she has used [facility] for PT in the past but has not used their services since February of this year. Patient reports her sister, Rebecca Choudhury from [facility], is her DPOA. A copy is in the EMR. SW will request PT/OT evaluate patient prior to discharge. SW will continue to follow and assist with any discharge needs.
--- NOTE | 2018-10-08 12:22 | NUR ---
Initial visit; Patient thanked Grated Cheese Maker for looking in on her and offering God's blessings. Lauren requested Grated Cheese Maker call her Packing Machine Tender in [place]. which Grated Cheese Maker later did. Packing Machine Tender not available so Grated Cheese Maker left a message on her telephone.
--- NOTE | 2018-10-08 14:10 | NUR ---
TRINY spoke with patient's nurse, Lorraine, from [facility]. Lorraine requested updates to be faxed. TRINY faxed updates to [place].
--- NOTE | 2018-10-08 14:30 | NUR ---
RECEIVED REPORT FROM NEERU ERICKSON. PT DENIES NEEDS AT THIS TIME.
--- NOTE | 2018-10-08 14:30 | NUR ---
Patient report given to DRE Roberts at this time. Patient remains stable and is in no apparent distress. Call light within reach. Bed in lowest position.
--- NOTE | 2018-10-08 17:00 | NUR ---
PT UP TO COMMODE WITH STAND BY ASSIST. BACK TO BED WITH BIPAP ON PER PT REQUEST TO TAKE NAP. PATIENT MADE DINNER REQUEST KNOW. WILL ALLOW PT TO REST UNITL 1814.
--- NOTE | 2018-10-08 19:00 | NUR ---
REPORT GIVEN TO BAKARI ERICKSON. PT TAKEN TO COMMODE AND BACK TO BED WITH STAND BY ASSIST. DENIES NEEDS AT THIS TIME.
[2018-10-09] VITALS (384 sets, daily range): BP systolic 133–154; BP diastolic 50–78; PULSE 55–90; TEMP 97.5–98; O2SAT 82–100
[2018-10-09 06:05] LABS: BASO % 0.1 % (0.0-2.0); GRAN # 8.2 (1.4-6.5); GRAN % 86.9 % (42.2-75.2); HEMOGLOBIN 10.3 g/dl (12.5-16.0); LYMPH # 0.7 (1.2-3.4); LYMPH % 7.7 % (20.0-51.0); MEAN CELL VOLUME 90 fl (80.0-100.0); MEAN CORPUSCULAR HEMOGLOBIN 28 pg (27.0-31.0); MEAN CORPUSCULAR HGB CONC 32 g/dl (33.0-37.0); MEAN PLATELET VOLUME 10.4 fl (7.4-10.4); MONO # 0.4 (0.1-0.6); MONO % 4.6 % (1.7-9.3); PLATELET COUNT 236 K/mm3 (130-400); RED BLOOD COUNT 3.64 M/mm3 (4.10-5.30); REDCELL DISTRIBUTION WIDTH-CV 13.7 % (11.5-14.5)
[2018-10-09 06:06] LABS: HEMATOCRIT 32.7 % (37.0-47.0)
[2018-10-09 06:20] LABS: CALCIUM 9.3 mg/dL (8.4-10.2); CREATININE, serum 1.95 (0.52-1.25); POTASSIUM 4.2 mmol/L (3.4-5.0)
--- NOTE | 2018-10-09 08:45 | NUR ---
PT A&O X4. DENIES PAIN.
--- NOTE | 2018-10-09 10:49 | NUR ---
SW attended clinical rounds. Patient will be transferred to the Medical floor today. Patient was seen by OT for evaluation. OT reports patient will not require any OT home health services. Patient will be evaluated by PT later today. SW will continue to follow.
--- NOTE | 2018-10-09 16:19 | NUR ---
1600: REPORT GIVEN TO DRE SANTOS. 1619: PT TO MEDICAL FLOOR [id number] VIA . PT BELONGINGS WITH PT.
--- NOTE | 2018-10-09 16:30 | NUR ---
PT ADMITTED TO FLOOR AT THIS TIME.
--- NOTE | 2018-10-09 17:00 | NUR ---
PT HAS IV FLUIDS RUNNING AT 75ML/HR. MEPALEX ON COCCYX IN PLACE. 2L O2 IN PLACE. VITALS WNL. PT ATE LATE LUNCH AND GOT OFF SCHEDULE FOR INSULIN. WILL RECHECK AT HS. NO ISSUES OR CONCERNS VOICED.
--- NOTE | 2018-10-09 20:19 | NUR ---
Resting in bed. Assessment complete. Lungs clear. Heart sounds normal. Bowels active x4. Pulses present throughout. Bilateral lower leg edema +2. Coccyx covered with mepalex dressing that is intact, will assess if dressing comes off. Bruising to ABD present from lovenox injection. Denies pain. Denies needs at this time. Call light in reach.
--- NOTE | 2018-10-09 22:10 | NUR ---
Patient continues to have dry cough present. Provided with PRN robitussin at this time.
--- NOTE | 2018-10-09 22:30 | NUR ---
Coccyx assessed and mepilex replaced. Red with flaking skin, blanchable.
--- NOTE | 2018-10-09 23:51 | NUR ---
Patient continues to cough without production. Contacted respiratory therapy for PRN breathing treatment. Patient has refused all other intervention at this time.
[2018-10-10] VITALS (10 sets, daily range): BP systolic 134–190; BP diastolic 50–74; PULSE 55–66; TEMP 97.5–98.3
--- NOTE | 2018-10-10 05:29 | NUR ---
Patient resting in bed this AM. Earlier in evening patient had difficulty with persistent coughing, unresolved with robitussin. Refused other methods of intervention. Patient received PRN breathing treatment. Patient reports "whatever it is is suck in my throat." Breathing treatment resolved persistent cough and patient was able to rest well throughout night. Denies needs this AM.
[2018-10-10 06:17] LABS: BASO % 0.1 % (0.0-2.0); GRAN # 13.6 (1.4-6.5); GRAN % 86.4 % (42.2-75.2); HEMATOCRIT 32.1 % (37.0-47.0); HEMOGLOBIN 9.9 g/dl (12.5-16.0); LYMPH # 0.9 (1.2-3.4); LYMPH % 5.9 % (20.0-51.0); MEAN CELL VOLUME 91 fl (80.0-100.0); MEAN CORPUSCULAR HEMOGLOBIN 28 pg (27.0-31.0); MEAN CORPUSCULAR HGB CONC 31 g/dl (33.0-37.0); MEAN PLATELET VOLUME 10.4 fl (7.4-10.4); MONO # 1.1 (0.1-0.6); MONO % 6.8 % (1.7-9.3); PLATELET COUNT 244 K/mm3 (130-400); RED BLOOD COUNT 3.54 M/mm3 (4.10-5.30)
[2018-10-10 06:25] LABS: CALCIUM 9.2 mg/dL (8.4-10.2); CREATININE, serum 1.69 (0.52-1.25); POTASSIUM 4.4 mmol/L (3.4-5.0)
--- NOTE | 2018-10-10 06:58 | NUR ---
Report given to Cash ERICKSON
--- NOTE | 2018-10-10 08:48 | NUR ---
Assessment completed, alert/oriented, vital signs stable, denies pain or discomfort, reports still feeling weak and tired, reports still getting SOA with activity and requiring 2L. O2, lungs are coarse and bases are diminished, she reports intermittent productive cough/ no sputum observed at this time, heart RRR/ distal pulses palpable, SR on tele, she is sitting at the edge of bed, has taken her morning meds, has been by to evaluate her, she alisa other needs at this time
--- NOTE | 2018-10-10 21:45 | NUR ---
Resting in bed. Reports shortness of breath with cough. Provided with PRN robitussin. Assessment complete. Left lower lobe coarse. Otherwise clear. Saturation 94% on 1 liter. Heart sounds normal. Bowels active x4. Pulses present throughout. Bilateral lower leg edema +1. Denies pain at this time. Denies needs. Call light in reach. Blood pressure elevated. Provided with PRN hydralazine as ordered.
[2018-10-11] VITALS (318 sets, daily range): BP systolic 115–184; BP diastolic 58–98; PULSE 52–68; TEMP 97.5–98.3; O2SAT 91–100
--- NOTE | 2018-10-11 02:30 | NUR ---
Patient reports anxiety with breathing and throacentesis in AM. Patient has increased respirations, saturations 90-93% on 2 liters. Patient has crackles in left base with wheezing. Provided breathing treatment, reports anxiety has not resolved. Spoke with Dr. Piña for anxiety medication. Tried nonpharmaceutical interventions prior to contacting. Will add order.
--- NOTE | 2018-10-11 02:58 | NUR ---
Breathing continues to be labored. Saturation 89% on nasal cannula. Patient mouth breathing. Changed to oximask and increased to [address]ers. Saturation 89-90%. Dr. Piña on medical floor. Nofitied. Ordered Albuterol treatment and ABGs. Dr. Piña in room to see patient.
--- NOTE | 2018-10-11 03:16 | NUR ---
Patient breathing treatment complete. Per Dr. Wang cespedes Ativna 0.5mg now for anxiety. Patient 88% on 3.5 liters. Respiratory to get bipap machine per Dr. Piña
[2018-10-11 03:19] LABS: ARTERIAL BLD GAS O2 SATURATION 88.8 % (92-100); ARTERIAL BLD GAS TCO2 CT 22.1; ARTERIAL BLOOD GAS BASE EXCESS -5.8 (-2-2); ARTERIAL BLOOD GAS HCO3 20.8 meq/L (22-26); ARTERIAL BLOOD GAS PCO2 44.7 mmHg (35-45); ARTERIAL BLOOD GAS PO2 58.7 mmHg (80-100); ARTERIAL BLOOD GAS pH 7.29 (7.35-7.45)
--- NOTE | 2018-10-11 03:33 | NUR ---
PATIENT BECAME MORE SOB AND ANXIOUS THIS EVENING. SATS WERE RUNNING ABOUT 90# ON 2L. NURSES CALLED TO DO OXYMASK, BUT SHE WAS STILL SOB. BS WHEEZES THROUGHOUT, DIMINISHED IN BASES. DOCTOR IN ROOM REQUESTED ALBUTEROL TX , BLOOD GAS. HER BREATHING BECAME FASTER AND SHE WAS ANXIOUS, SO BIPAP WAS ORDERED. MEDIUM FF MASK WAS APPLIED. PATIENT TOLERATING BIPAP AT THIS TIME.
--- NOTE | 2018-10-11 05:49 | NUR ---
Patient continues to wear bipap. Currently at 99%. Resting without anxiety. Will continue to monitor.
[2018-10-11 06:03] LABS: HEMOGLOBIN 10.7 g/dl (12.5-16.0); MEAN CELL VOLUME 92 fl (80.0-100.0); MEAN CORPUSCULAR HEMOGLOBIN 28 pg (27.0-31.0); MEAN CORPUSCULAR HGB CONC 31 g/dl (33.0-37.0); MEAN PLATELET VOLUME 10.1 fl (7.4-10.4); PLATELET COUNT 265 K/mm3 (130-400); RED BLOOD COUNT 3.77 M/mm3 (4.10-5.30); REDCELL DISTRIBUTION WIDTH-CV 14.3 % (11.5-14.5)
[2018-10-11 06:04] LABS: HEMATOCRIT 34.5 % (37.0-47.0)
[2018-10-11 06:14] LABS: CALCIUM 9.1 mg/dL (8.4-10.2); CREATININE, serum 1.59 (0.52-1.25); POTASSIUM 5.2 mmol/L (3.4-5.0)
[2018-10-11 06:26] LABS: BAND 2 % (0-10); LYMPHOCYTE 6 % (20.0-51.0); NEUTROPHILS 82 % (42.0-75.2); PLATELET ESTIMATE NORMAL (NORMAL)
--- NOTE | 2018-10-11 07:19 | NUR ---
Report given to DRE Patricia
[2018-10-11 08:02] LABS: ARTERIAL BLD GAS O2 SATURATION 95.7 % (92-100); ARTERIAL BLD GAS TCO2 CT 21.5; ARTERIAL BLOOD GAS BASE EXCESS -5.4 (-2-2); ARTERIAL BLOOD GAS HCO3 20.3 meq/L (22-26); ARTERIAL BLOOD GAS PCO2 40.3 mmHg (35-45); ARTERIAL BLOOD GAS PO2 85.4 mmHg (80-100); ARTERIAL BLOOD GAS pH 7.32 (7.35-7.45)
--- NOTE | 2018-10-11 09:14 | NUR ---
Vancomycin Initial Dosing Pharmacy Note Ordering provider: Benoit Indication/duration: SEPSIS/PNA Relevant comorbidities: DM type 2, obesity LABS: SCr.1.6, WBC 18.7 Recommendation: Maintenance dose: Vancomycin 1.5 g Q24H Trough goal: 15-20 ug/mL, trough 10/15/18 @ 0930 before 5th dose
--- NOTE | 2018-10-11 09:54 | NUR ---
Pt assessment complete. Pt is sitting up on the side of the bed eating breakfast at this time. Pt has intermittent coughing, and starting throwing up while eating. Pt continues to try to talk and drink while having this episode, advised patient to stop eating and drinking while feeling SOB and coughing. Pt denies pain at this time. Currently on 4.5L O2 via NC. POC discussed with patient who verbalizes understanding. Call light within reach. Will continue to monitor.
--- NOTE | 2018-10-11 10:26 | NUR ---
TRINY met with the patient to discuss discharge plan and to review PT/OT recommendation of back to assisted living if able. The patient reports that she still plans to return back to [facility] when ready to discharge and feels safe doing so. The patient is to be transfered back down to the [facility] today. SW to contact and fax updates to [facility]. TRINY to continue to follow.
--- NOTE | 2018-10-11 12:00 | NUR ---
Pt transferred to ICU from medical for metabolic and respiratory acidosis. Pt arrived via stretcher with medical staff on 6L oxygen per high flow canula. NS infusing per peripheral IV in right wrist. Pt alert and oriented and speaking with staff. Pt transferred to ICU bed and connected to monitors and BiPAP per RT. Pt arrived with all belongings as well as eye drops from home.
--- NOTE | 2018-10-11 12:09 | NUR ---
Pt wheeled down to IM 1, nurses at bedside.
--- NOTE | 2018-10-11 12:10 | NUR ---
Maira from [facility] here to place a PICC line.
--- NOTE | 2018-10-11 12:20 | NUR ---
PICC line placed to right upper arm. Portable chest xray obtained to check placement. Per Maira PICC line is ok for use.
--- NOTE | 2018-10-11 15:00 | NUR ---
Shelby palmais here to evaluate pt. Pt to start with a mechanical soft diet with regular liquids.
[2018-10-11 17:07] LABS: ARTERIAL BLD GAS O2 SATURATION 95.5 % (92-100); ARTERIAL BLD GAS TCO2 CT 21.4; ARTERIAL BLOOD GAS BASE EXCESS -5.1 (-2-2); ARTERIAL BLOOD GAS HCO3 20.2 meq/L (22-26); ARTERIAL BLOOD GAS PCO2 38.7 mmHg (35-45); ARTERIAL BLOOD GAS PO2 81.5 mmHg (80-100); ARTERIAL BLOOD GAS pH 7.34 (7.35-7.45)
--- NOTE | 2018-10-11 19:10 | NUR ---
Bedside report received from DRE Jenkins.
--- NOTE | 2018-10-11 20:00 | NUR ---
Patient intermittently falls asleep in the recliner. When awake she is alert and oriented. Follows commands. No complaints of pain or SOB. Assessment complete. Patient has audible wheezes, inspiratory and expiratory, that are audible standing near the patient. Wheezes are in all vizcarra. She also has diminished bases bilaterally. HR and rhythm are regular, patient is bradycardic. Bowel sounds are active x4. Patient does have some edema to her lower extremities. Patient has many bruises to her arms and her abdomen. Patient has a stage 1 pressure ulcer to her sacrum, it is covered with a sacral dressing. Assisted patient back to bed with an assist of 2 with gait belt. Patient is very wobbly on her feet. No further needs at this time. Will continue to monitor. Call light within reach.
[2018-10-12] VITALS (618 sets, daily range): BP systolic 149–176; BP diastolic 47–67; PULSE 50–64; TEMP 97.7–98.1; O2SAT 89–100
--- NOTE | 2018-10-12 | NUR ---
Patient awakens easily to name. She is not in any pain or having any SOB. Patient is tolerating BiPAP well. Vitals obtained and remain stable. Patient has no further needs at this time. Will continue to monitor.
--- NOTE | 2018-10-12 04:00 | NUR ---
Patient asleep on BiPAP, no signs of distress. Patient awakens to noise in the room. No complaints of pain. Vitals obtained and remain stable. Repositioned patient for comfort. No further needs. Will continue to monitor.
[2018-10-12 04:54] LABS: ARTERIAL BLD GAS O2 SATURATION 97.3 % (92-100); ARTERIAL BLD GAS TCO2 CT 22.7; ARTERIAL BLOOD GAS BASE EXCESS -4.1 (-2-2); ARTERIAL BLOOD GAS HCO3 21.4 meq/L (22-26); ARTERIAL BLOOD GAS PCO2 40.6 mmHg (35-45); ARTERIAL BLOOD GAS pH 7.34 (7.35-7.45)
[2018-10-12 05:34] LABS: BASO % 0.1 % (0.0-2.0); GRAN % 82.5 % (42.2-75.2); HEMOGLOBIN 10.3 g/dl (12.5-16.0); LYMPH # 0.8 (1.2-3.4); LYMPH % 6.2 % (20.0-51.0); MEAN CELL VOLUME 91 fl (80.0-100.0); MEAN CORPUSCULAR HEMOGLOBIN 28 pg (27.0-31.0); MEAN CORPUSCULAR HGB CONC 31 g/dl (33.0-37.0); MEAN PLATELET VOLUME 9.9 fl (7.4-10.4); MONO # 1.3 (0.1-0.6); MONO % 10.5 % (1.7-9.3); PLATELET COUNT 223 K/mm3 (130-400); RED BLOOD COUNT 3.63 M/mm3 (4.10-5.30); REDCELL DISTRIBUTION WIDTH-CV 14.2 % (11.5-14.5)
[2018-10-12 05:45] LABS: ALBUMIN 3.1 gm/dL (3.5-5.0); BILIRUBIN,TOTAL 0.6 mg/dL (0.0-1.0); CALCIUM 9.3 mg/dL (8.4-10.2); CREATININE, serum 1.54 (0.52-1.25); MAGNESIUM 2.7 mg/dL (1.6-2.3); PHOSPHOROUS 3.3 mg/dL (2.5-4.5); POTASSIUM 4.7 mmol/L (3.4-5.0); TOTAL PROTEIN 5.9 gm/dL (6.4-8.2)
--- NOTE | 2018-10-12 07:34 | NUR ---
Bedside report given to DRE Anglin and DRE Jenkins
--- NOTE | 2018-10-12 09:57 | NUR ---
Initial visit; Patient thanked Abrasive Grinder for looking in on her and discussed her health issues with Abrasive Grinder who wished her well and offered God's blessings.
--- NOTE | 2018-10-12 10:59 | NUR ---
SW spoke with speech therapy. ST is recommended home health. SW met with patient about home health recommendation. Patient is agreeable to home health for speech, PT, OT, and fpc. SW provided medicare.gov resource list. Patient reports she has used [facility] in the past and would prefer to use them again. TRINY contacted and faxed referral to [facility].
--- NOTE | 2018-10-12 15:24 | NUR ---
Pt has been doing well today with oxygen at 4L per high flow canula. Pt has denied pain. Pt up with 2 assist with gait belt. Pt utilizing Bipap when she sleeps and has tolerated this well. Pt has eaten 100% of meals and tolerating mechanical soft diet well. Avila patent with good output. Pt does have a non productive cough. Pt has been working with therapy today. New orders received to transfer to the medical floor room 314. Pt updated on plan of care and verbalizes understanding.
--- NOTE | 2018-10-12 15:32 | NUR ---
Report to Dary ERICKSON on the medical floor. Pt ready for transfer to room [address] Krishnan.
--- NOTE | 2018-10-12 16:04 | NUR ---
Pt transfered to room 314 with all her belongings. Report to Belem ERICKSON who assumes care of pt at this time. Pt with telemtry on and in recliner. Avila patent and Zosyn infusing per pump at 25ml/hr. Call light in reach.
--- NOTE | 2018-10-12 17:00 | NUR ---
Pt arrived to room 314 at this time. She is A/O x3. Pt is dyspneic on exertion, currently on 4L O2 via NC. Pt has intermittent coughing, little production. Lungs CTA. HR regular. 3+ edema to BLE. Avila DD, clear yellow urine. PICC to RUE, abx infusing without complications. Tele in place. Call light within reach. Will continue to monitor.
--- NOTE | 2018-10-12 20:00 | NUR ---
Patient report received from Norberto Patricia at shift change. Upon assessment at this time patient is resting in bed, sitting upright with Oxgyen via NC at 4L. Avila to dependandt drainage, cath care preformed. Dressing to coccyx CDI. Vitals stable. Denies pain or n/v. No other needs reported/observed.
[2018-10-13 04:14] VITALS: BP 157/56; PULSE 51; TEMP 97.7
--- NOTE | 2018-10-13 04:38 | NUR ---
Patient Bradycardic 38-41. called, held Coreg. No other orders.
--- NOTE | 2018-10-13 05:41 | NUR ---
Patient report given to DRE Mcgowan. Patient resting comforably in bed at this time.
[2018-10-13 06:20] LABS: BASO % 0.1 % (0.0-2.0); GRAN # 10.3 (1.4-6.5); GRAN % 84.8 % (42.2-75.2); HEMOGLOBIN 10.1 g/dl (12.5-16.0); LYMPH # 0.9 (1.2-3.4); LYMPH % 7.2 % (20.0-51.0); MEAN CELL VOLUME 92 fl (80.0-100.0); MEAN CORPUSCULAR HEMOGLOBIN 28 pg (27.0-31.0); MEAN CORPUSCULAR HGB CONC 31 g/dl (33.0-37.0); MEAN PLATELET VOLUME 10.3 fl (7.4-10.4); MONO # 0.9 (0.1-0.6); MONO % 7.2 % (1.7-9.3); PLATELET COUNT 208 K/mm3 (130-400); RED BLOOD COUNT 3.56 M/mm3 (4.10-5.30); REDCELL DISTRIBUTION WIDTH-CV 14.1 % (11.5-14.5)
[2018-10-13 06:23] LABS: HEMATOCRIT 32.7 % (37.0-47.0)
[2018-10-13 06:29] LABS: CALCIUM 9.1 mg/dL (8.4-10.2); CREATININE, serum 1.53 (0.52-1.25); POTASSIUM 4.8 mmol/L (3.4-5.0)
--- NOTE | 2018-10-13 07:43 | NUR ---
WRITTEN REPORT RECEIVED FROM DRE LEI SINCE SHE HAD TO LEAVE EARLY. PT SITTING ON THE SIDE OF THE BED ALERT AND ORIENTED. PT WAITING FOR HER PROTEIN SHAKE. CALL LIGHT IN REACH.
[2018-10-13 07:53] VITALS: BP 156/44; PULSE 59; TEMP 97.6
--- NOTE | 2018-10-13 08:45 | NUR ---
Pt likes to talk about her life history. Pt alert and oriented and denied pain. Call light in reach.
--- NOTE | 2018-10-13 10:21 | NUR ---
Visit attempted and pt sleeping soundly in bed. Call light in reach.
[2018-10-13 10:57] VITALS: BP 149/55; PULSE 57; TEMP 97.7
--- NOTE | 2018-10-13 11:40 | NUR ---
RTELBERT CALLED IN FOR EKG ORDER ON THIS PATIENT.
--- NOTE | 2018-10-13 12:25 | NUR ---
Pt resting in bed comfortably and denied pain. Call light in reach.
--- NOTE | 2018-10-13 14:04 | NUR ---
VISIT ATTEMPTED AND PT TALKING ON HER CELL PHONE. CALL LIGHT IN REACH.
--- NOTE | 2018-10-13 14:59 | NUR ---
Pt resting in bed comfortably and denied pain. Call light in reach.
[2018-10-13 15:51] VITALS: BP 157/59; PULSE 57; TEMP 98.1
--- NOTE | 2018-10-13 18:10 | NUR ---
PT RESTING IN BED COMFORTABLY AND DENIED PAIN. NO CONCERN. CALL LIGHT IN REACH.
[2018-10-13 19:05] VITALS: BP 148/62; PULSE 83; TEMP 97.8
--- NOTE | 2018-10-13 19:29 | NUR ---
REPORT GIVEN TO DRE NUENZ. PT RESTING IN BED COMFORTABLY. CALL LIGHT IN REACH.
--- NOTE | 2018-10-13 19:45 | NUR ---
Assessed at this time. Alert and oriented X 4, and able to make needs known. Denies having pain and discomfort. Double lumen PICC to RUE. Red and purple ports flushed. Site is without redness, warmth, swelling, and pain. Denies having SOB and dyspnea. On oxygen at 3 L/min via NC. LS CTA in upper lobes, diminished in lower lobes. HRR. Cap refill < 3 sec. Non-tent skin turgor. Telemetry in place. BSAx4. Abdomen soft and non-tender. Bruising to BUE and abdomen. 2+ edema BLE. Indwelling smith catheter patent, and draining clear yellow urine via dependent drainage. Denies having any questions, needs, or concerns at this time. Resting in bed with call light within reach.
--- NOTE | 2018-10-13 21:30 | NUR ---
Patient comlained of headache. Given PRN APAP as requested.
[2018-10-13 23:29] VITALS: BP 156/58; BP 168/50; PULSE 51; PULSE 54; TEMP 97.7
[2018-10-14 03:58] VITALS: BP 159/47; PULSE 58; TEMP 97.6
--- NOTE | 2018-10-14 06:08 | NUR ---
Patient has not had any further complaints of pain since receiving PRN APAP last night. Patient wore BIPAP for about half the night, and oxygen at 3 L/min via NC when BIPAP was not on. Patient woke up around 0500 with frequent dry cough. Given PRN Robitussin as requested. Voices no other questions, needs, or concerns at this time. Patient is resting in bed with call light within reach.
[2018-10-14 06:15] LABS: BASO % 0.1 % (0.0-2.0); GRAN # 12.2 (1.4-6.5); GRAN % 87.6 % (42.2-75.2); HEMOGLOBIN 10.7 g/dl (12.5-16.0); LYMPH # 0.8 (1.2-3.4); LYMPH % 5.5 % (20.0-51.0); MEAN CELL VOLUME 92 fl (80.0-100.0); MEAN CORPUSCULAR HEMOGLOBIN 29 pg (27.0-31.0); MEAN CORPUSCULAR HGB CONC 31 g/dl (33.0-37.0); MEAN PLATELET VOLUME 10.4 fl (7.4-10.4); MONO # 0.8 (0.1-0.6); MONO % 5.9 % (1.7-9.3); PLATELET COUNT 216 K/mm3 (130-400); RED BLOOD COUNT 3.76 M/mm3 (4.10-5.30); REDCELL DISTRIBUTION WIDTH-CV 14.2 % (11.5-14.5)
[2018-10-14 06:22] LABS: HEMATOCRIT 34.4 % (37.0-47.0)
[2018-10-14 06:34] LABS: CALCIUM 9.1 mg/dL (8.4-10.2); CREATININE, serum 1.58 (0.52-1.25); MAGNESIUM 2.4 mg/dL (1.6-2.3); POTASSIUM 4.8 mmol/L (3.4-5.0)
[2018-10-14 09:15] VITALS: BP 163/55; PULSE 66; TEMP 98.2
--- NOTE | 2018-10-14 09:50 | NUR ---
Pt is awake and A/Ox4, sitting up in bed. She states she is having 4/10 pain in her head, given PRN tylenol. PICC to right upper arm is free of complications. Pt remains on 4L O2 per NC, resp. are even and unlabored. Dry cough noted, pt requests PRN cough syrup which was given. Avila cath to DD is draining yellow urine with small amount of sediment without complications. Pt denies any other needs at this time.
[2018-10-14 11:49] VITALS: BP 101/76; PULSE 58; TEMP 97.5
[2018-10-14 15:42] VITALS: BP 166/59; PULSE 57; TEMP 98.3
--- NOTE | 2018-10-14 17:38 | NUR ---
Pt has had an overall uneventful shift. She continues to deny needs. She has remained on 3L O2 per NC throughtout shift.
[2018-10-14 19:05] VITALS: BP 158/45; PULSE 56; TEMP 98.4
--- NOTE | 2018-10-14 19:05 | NUR ---
Report received from Alejandra ERICKSON.
--- NOTE | 2018-10-14 19:52 | NUR ---
Pt sitting with HOB elevated. No distress noted. Supplemental drink given and drank 100%. Pt denies pain. Respirations even and unlabored, shallow. Lungs clear,diminished. O2@3L via NC. Dry cough noted. Abdomen soft, nontender. BS+. Indwelling smith catheter to dependent drainage. Output is yellow with sediment. 1+ edema to BLE. Pedal pulses equal. VIDHI PICC line flushed and has good blood return. HS meds given. No needs noted. Will continue to monitor.
--- NOTE | 2018-10-14 22:30 | NUR ---
Pt put on BiPAP by RT. No distress noted. Will continue to monitor.
[2018-10-14 23:16] VITALS: BP 150/35; PULSE 66; TEMP 98.6
--- NOTE | 2018-10-14 23:53 | NUR ---
Dr. Krishnan notified that pts HR is consistently 40. Pt is asymptomatic. All other VSS. Orders received to verify that Coreg is on hold and change telemetry notification parameters to <30.
--- NOTE | 2018-10-15 04:30 | NUR ---
Pt coughing. Requesting BiPAP be taken off. Replaced with O2@3L via NC. Pt reports resting well last night. PRN cough medicine given this AM. No complaints of pain throughout the night. BiPAP was well tolerated. Pt on telemetry- sinus bradycardia. HR in 50s while awake, but drops into the 40s while sleeping.
[2018-10-15 04:54] VITALS: BP 154/58; PULSE 50; TEMP 97.8
--- NOTE | 2018-10-15 05:54 | NUR ---
Pt sitting in bed with HOB elevated. No distress. Pt reports that she slept well last night. BiPAP worn for approximately 6 hours. Well tolerated. PRN cough medicine given earlier this AM. Pt reports "it helped a lot". Avila catheter to dependent drainage-free of kinks.
[2018-10-15 06:07] LABS: MEAN CELL VOLUME 91 fl (80.0-100.0); MEAN CORPUSCULAR HEMOGLOBIN 29 pg (27.0-31.0); MEAN CORPUSCULAR HGB CONC 31 g/dl (33.0-37.0); MEAN PLATELET VOLUME 10.2 fl (7.4-10.4); PLATELET COUNT 213 K/mm3 (130-400); RED BLOOD COUNT 3.85 M/mm3 (4.10-5.30); REDCELL DISTRIBUTION WIDTH-CV 14.1 % (11.5-14.5)
[2018-10-15 06:15] LABS: CALCIUM 9.6 mg/dL (8.4-10.2); CREATININE, serum 1.6 (0.52-1.25); POTASSIUM 4.7 mmol/L (3.4-5.0)
[2018-10-15 06:20] LABS: HEMATOCRIT 35.1 % (37.0-47.0)
[2018-10-15 07:39] LABS: HYPOCHROMIA 2+; LYMPHOCYTE 7 % (20.0-51.0); NEUTROPHILS 79 % (42.0-75.2); PLATELET ESTIMATE NORMAL (NORMAL)
[2018-10-15 08:23] VITALS: BP 143/57; PULSE 66; TEMP 98
--- NOTE | 2018-10-15 10:43 | NUR ---
TRINY rounded with the team. The pt was concerned about her strength and inquired about group home. TRINY presented the pt choice form and pt's first choice is [facility] and second choice is [facility]. SW faxed referrals. TRINY will continue to follow.
[2018-10-15 11:06] VITALS: BP 151/48; PULSE 49; TEMP 98.2
--- NOTE | 2018-10-15 11:30 | NUR ---
Carol from [facility] reports they can accept the pt for services. SW informed [facility] that referrals were sent to [facility] and to [facility]. TRINY faxed updates to [facility]. TRINY will continue to follow to ensure a safe discharge.
[2018-10-15 11:53] LABS: COLLECTION METHOD CATHETER
[2018-10-15 12:05] LABS: MUCOUS Present /lpf; PH 5 (5-8); SQUAMOUS EPITHELIAL 0-2 /hpf; URINE APPEARANCE Clear; URINE BACTERIA Rare /hpf; URINE BILIRUBIN Negative (NEGATIVE); URINE BLOOD 2+ (NEGATIVE); URINE COLOR Straw; URINE GLUCOSE Negative (NEGATIVE); URINE KETONE Negative (NEGATIVE); URINE LEUKOCYTE ESTERASE Negative (NEGATIVE); URINE NITRATE Negative (NEGATIVE); URINE PROTEIN(semi-quant) Negative (NEGATIVE); URINE UROBILINOGEN Negative (NEGATIVE)
--- NOTE | 2018-10-15 13:56 | NUR ---
Aspen from [facility] reports they can accept the patient for a detention stay. SW will continue to follow to ensure a safe discharge.
--- NOTE | 2018-10-15 14:12 | NUR ---
Vancomycin Follow-up Pharmacy Note Current regimen: Vancomycin 1.5 gm IV q24h Vancomycin trough: 22.87 Adjustments: Will hold next dose to allow Vancomycin trough to clear and restart with Vancomycin 1.25 gm IV q24h.
[2018-10-15 16:10] VITALS: BP 158/57; PULSE 55; TEMP 97.9
--- NOTE | 2018-10-15 16:58 | NUR ---
Pt had uneventful day. Up to chair with therapy. Pt A&O, chatty. Denies chest pain, N/V, dizziness, SOB. Pt is on 3L NC, satting high 90s. Pt has stage 1 ulcer on coccyx covered with mepalex. Scattered bruising noted to abdomen and bilateral arms from lab pokes and insulin shots. Avila catheter discontinued. Pt instructed to use call light to be assisted to bathroom/bedside commode. All medications administered per APR. Noon insulin not given d/t blood sugar being checked immediately after patient ate lunch. Pt has voiced no other concerns at this time. Call light within reach.
[2018-10-15 19:02] VITALS: BP 154/43; PULSE 56; TEMP 98.9
--- NOTE | 2018-10-15 20:40 | NUR ---
Patient assessed at this time. Alert and oriented. Able to make needs known. Does have some confusion, but easily redirected. Double lumen PICC to RUE. Flushed. Site is without redness, warmth, swelling, and pain. Denies having SOB and dyspnea. On oxygen at 2 L/min via NC. Wears BIPAP at night. LS CTA in upper lobes, diminished in lower lobes. HRR. Telemetry in place Capillary refill less than 3 seconds. Non-tenting skin turgor. BSAx4. Abdomen sfot and non-tender. Avila catheter was taken out earlier today. Patient has been able to void. Denies having pain, burning, and discomfort with urination. Denies feelings of urinary retention. Mepilex to coccyx is CDI. 3+ edema to BLE. Bruising continues to BUE and abdomen. Voices no questions, needs, or concerns at this time. Resting in bed with call light within reach.
[2018-10-15 23:35] VITALS: BP 134/43; PULSE 50; TEMP 98.9
--- NOTE | 2018-10-16 01:31 | NUR ---
Patient had on BIPAP from about 2300 until 0130. Refusing to wear at this time. Put back on oxygen at 3 L/min via NC.
[2018-10-16 04:12] VITALS: BP 133/47; PULSE 60; TEMP 97.9
--- NOTE | 2018-10-16 05:43 | NUR ---
Patient complained of headache around 0415. Given PRN APAP as requested. Reports it was effective. Voices no other questions, needs, or concerns at this time. Continues to wear oxygen at 3 L/min via NC. Resting in bed with call light within reach.
[2018-10-16 06:35] LABS: HEMOGLOBIN 10.3 g/dl (12.5-16.0); MEAN CELL VOLUME 92 fl (80.0-100.0); MEAN CORPUSCULAR HEMOGLOBIN 28 pg (27.0-31.0); MEAN CORPUSCULAR HGB CONC 31 g/dl (33.0-37.0); MEAN PLATELET VOLUME 10.6 fl (7.4-10.4); PLATELET COUNT 218 K/mm3 (130-400); RED BLOOD COUNT 3.66 M/mm3 (4.10-5.30); REDCELL DISTRIBUTION WIDTH-CV 14.1 % (11.5-14.5)
[2018-10-16 06:42] LABS: HEMATOCRIT 33.8 % (37.0-47.0)
[2018-10-16 06:50] LABS: CALCIUM 9.4 mg/dL (8.4-10.2); CREATININE, serum 1.65 (0.52-1.25); POTASSIUM 4.2 mmol/L (3.4-5.0)
[2018-10-16 07:08] LABS: EOSINOPHIL 1 % (0-4); LYMPHOCYTE 25 % (20.0-51.0); MYELOCYTE 1 % (0-0); NEUTROPHILS 59 % (42.0-75.2); PLATELET ESTIMATE NORMAL (NORMAL)
[2018-10-16 07:09] LABS: HYPOCHROMIA 3+
[2018-10-16 07:43] VITALS: BP 148/37; PULSE 58; TEMP 97.7
[2018-10-16] MEDS ORDERED: CEFTIN500 MG PO (09:47)
[2018-10-16] MEDS ORDERED: MIRALAX PA17 GM/Dose PO (09:50)
[2018-10-16] MEDS ORDERED: COLACE 100100 MG/CAP PO (09:50)
[2018-10-16] MEDS ORDERED: NORVASC 10MG10 MG PO (09:58)
[2018-10-16] MEDS ORDERED: LEVEMIR FLEX100 U/ML SQ ×2 (10:01→10:02)
[2018-10-16] MEDS ORDERED: NOVOLOG FLEX100 U/ML SQ (10:05)
--- NOTE | 2018-10-16 10:10 | NUR ---
TRINY attended clinical rounds. Patient can discharge to [facility] for skilled stay today. TRINY presented IM to patient. She signed and did not want a copy. TRINY will fax discharge orders and arrange transportation. TRINY informed Gabby from [facility] about discharge. Dr Hernandez requested updates on patient prior to admission to [facility]. TRINY faxed updates.
--- NOTE | 2018-10-16 10:33 | NUR ---
Patient will discharge to [facility] today 10/16, for a skilled stay. SW faxed discharge orders and arranged transportation for 1pm.
[2018-10-16 10:51] VITALS: BP 148/40; PULSE 58; TEMP 97.9
--- NOTE | 2018-10-16 11:01 | NUR ---
Pt assessment completed and charted. Morning medications administered per APR. Pt sitting in recliner. Denies pain, dizziness, N/V, SOB. Pt on 3L NC. Pt has a cough that starts when she starts talking a lot. Pt ambulating with 1 assist to bedside commode and bathroom. VIDHI PICC flushes with good blood return. Maira linares/ ZAKIA was called to inform of PICC removal prior to pt discharging to [facility] this afternoon. Pt voices no other concerns at this time. Call light within reach.
[2018-10-16 13:07] VITALS: BP 148/40; PULSE 58; TEMP 97.9
--- NOTE | 2018-10-16 14:27 | NUR ---
Pt discharged to [facility]. VIDHI PICC removed by ZAKIA Rao prior to discharge. No complications. Report called to nurse taking pt. All questions answered. No other needs at this time.
== END 2018-10-16 13:30 | DRG 871 ==
LOC: COL.ER 23:38 → ICU 10-08 01:38 → MEDICAL 10-08 01:38 → ICU 10-11 09:51 → MEDICAL 10-11 09:51 → ICU 10-11 09:51 → MEDICAL 10-12 16:03 → ICU 10-12 16:03 → MEDICAL 10-12 16:03
PROVIDERS: Emergency Medicine; Family Medicine; Internal Medicine Pulmonary Disease; Nurse Practitioner Family; Physician Assistant; ADMIT Hospitalist
PROC: 02HV33Z Insertion of Infusion Device into Superior Vena Cava, Percutaneous Approach (ICD-10-PCS; principal; 2018-10-11)
DX: A41.9 Sepsis, unspecified organism (principal); J96.01 Acute respiratory failure with hypoxia; J18.1 Lobar pneumonia, unspecified organism; J45.901 Unspecified asthma with (acute) exacerbation; N17.9 Acute kidney failure, unspecified; E87.4 Mixed disorder of acid-base balance; J90 Pleural effusion, not elsewhere classified; E78.5 Hyperlipidemia, unspecified; I48.0 Paroxysmal atrial fibrillation; E11.22 Type 2 diabetes mellitus with diabetic chronic kidney disease; N18.9 Chronic kidney disease, unspecified; E11.649 Type 2 diabetes mellitus with hypoglycemia without coma; I12.9 Hypertensive chronic kidney disease with stage 1 through stage 4 chronic kidney disease, or unspecified chronic kidney disease; G47.33 Obstructive sleep apnea (adult) (pediatric); I27.20 Pulmonary hypertension, unspecified; M79.7 Fibromyalgia; R65.20 Severe sepsis without septic shock; E66.9 Obesity, unspecified; F41.9 Anxiety disorder, unspecified; R59.9 Enlarged lymph nodes, unspecified; Z68.38 Body mass index [BMI] 38.0-38.9, adult; H35.30 Unspecified macular degeneration; R53.81 Other malaise; K21.9 Gastro-esophageal reflux disease without esophagitis; Z79.4 Long term (current) use of insulin; Z88.2 Allergy status to sulfonamides; Z88.8 Allergy status to other drugs, medicaments and biological substances
CPT/HCPCS: 99223-AI; 99232-AI; 99233-AI; 99239; A4216; C1751; J0360; J0456; J0692; J1650; J1815; J1956; J2060; J2543; J2920; J2930; J3370; J7030; J7050; J7512

== ENCOUNTER → 2018-11-15 | Outpatient (CLI) | payer MEDICARE, OTHER ==
[~2018-11-15] MED LIST changes: +B COMPLEX #11 TA1 PO; +CEFTIN500 MG PO; +LIQUIFILM TEARS15 ML OU; +LUMIGAN 2.5 ML2.5 M1 OP; +MYRBETR50MG PO; +NORVASC 10MG10 MG PO; +NYAMYC100000 U/G TP; +PROTONIX 40MG T40 MG PO; +SIMBRINZA 0.2%-18 ML OP; +TIMOLOL MALEATE5 M1 OP; +TOBRADEX EYE DRO5 ML OP; +ZANTAC 150MG T150 MG PO
[2018-11-15 23:19] LABS: RHEUMATOID FACTOR-SCREEN <15 IU/mL (0-29)
[2018-11-17 13:37] LABS: ANGIOTENSIN CONVERTING ENZYME 70 U/L (16 - 85)
== END ==
LOC: COL.RAD 11:05
PROVIDERS: Internal Medicine Pulmonary Disease
DX: J90 Pleural effusion, not elsewhere classified (principal); J44.9 Chronic obstructive pulmonary disease, unspecified

== ENCOUNTER 2019-01-28 16:13 | Emergency (ER) | payer MEDICARE, OTHER ==
[~2019-01-28] VITALS: Ht 157.5 cm; Wt 90.9 kg
[2019-01-28 17:36] LABS: BASO # 0.1 (0.0-0.2); BASO % 0.4 % (0.0-2.0); EOS % 0.3 % (0-4.0); GRAN # 10.6 (1.4-6.5); GRAN % 76.3 % (42.2-75.2); HEMOGLOBIN 11.3 g/dl (12.5-16.0); LYMPH # 1.7 (1.2-3.4); LYMPH % 12.5 % (20.0-51.0); MEAN CELL VOLUME 89 fl (80.0-100.0); MEAN CORPUSCULAR HEMOGLOBIN 28 pg (27.0-31.0); MEAN CORPUSCULAR HGB CONC 32 g/dl (33.0-37.0); MEAN PLATELET VOLUME 10.4 fl (7.4-10.4); MONO # 1.4 (0.1-0.6); MONO % 10.1 % (1.7-9.3); PLATELET COUNT 234 K/mm3 (130-400); RED BLOOD COUNT 4.03 M/mm3 (4.10-5.30); REDCELL DISTRIBUTION WIDTH-CV 14.4 % (11.5-14.5)
[2019-01-28 17:45] LABS: HEMATOCRIT 35.9 % (37.0-47.0)
[2019-01-28 17:47] LABS: ALBUMIN 3.8 gm/dL (3.5-5.0); BILIRUBIN,TOTAL 0.8 mg/dL (0.0-1.0); CALCIUM 9.7 mg/dL (8.4-10.2); CREATININE, serum 1.7 (0.52-1.25); POTASSIUM 3.7 mmol/L (3.4-5.0); TOTAL PROTEIN 6.9 gm/dL (6.4-8.2)
[2019-01-28 18:05] LABS: COLLECTION METHOD CATHETER
[2019-01-28 18:29] LABS: MUCOUS Present /lpf; PH 5 (5-8); SQUAMOUS EPITHELIAL None Seen /hpf; URINE APPEARANCE Cloudy; URINE BACTERIA Moderate /hpf; URINE BILIRUBIN Negative (NEGATIVE); URINE BLOOD Negative (NEGATIVE); URINE GLUCOSE Negative (NEGATIVE); URINE KETONE Negative (NEGATIVE); URINE LEUKOCYTE ESTERASE Negative (NEGATIVE); URINE NITRATE Negative (NEGATIVE); URINE PROTEIN(semi-quant) 2+ (NEGATIVE); URINE RBC 0-2 /hpf; URINE UROBILINOGEN Negative (NEGATIVE)
[2019-01-28 18:30] LABS: URINE COLOR Yellow
[2019-01-28 19:58] VITALS: TEMP 98.8
[2019-01-28] MEDS ORDERED: ZITHROMAX 250M250 MG PO (20:12)
[2019-01-28] MEDS ORDERED: OMNICEF 300MG300 MG PO (20:12)
[2019-01-28 21:20] VITALS: BP 143/60; PULSE 64
== END 2019-01-28 21:20 | disposition home or self-care (01) ==
LOC: COL.ER 16:13
PROVIDERS: Emergency Medicine
DX: J18.9 Pneumonia, unspecified organism (principal); I10 Essential (primary) hypertension; M79.7 Fibromyalgia
CPT/HCPCS: J7040

== ENCOUNTER → 2019-02-25 | Outpatient (CLI) | payer MEDICARE, OTHER ==
[~2019-02-25] MED LIST changes: +OMNICEF 300MG300 MG PO
== END ==
LOC: COL.VAS 13:39
DX: I27.20 Pulmonary hypertension, unspecified (principal); I34.0 Nonrheumatic mitral (valve) insufficiency

== ENCOUNTER 2019-03-13 14:45 | Emergency (ER) | payer MEDICARE, OTHER ==
[~2019-03-13] VITALS: Ht 157.5 cm; Wt 88.6 kg
[2019-03-13 16:31] LABS: BASO # 0.1 (0.0-0.2); BASO % 0.6 % (0.0-2.0); EOS # 0.3 (0.0-0.7); EOS % 3.3 % (0-4.0); GRAN # 4.6 (1.4-6.5); GRAN % 54.4 % (42.2-75.2); HEMATOCRIT 38.1 % (37.0-47.0); LYMPH # 2.6 (1.2-3.4); LYMPH % 30.8 % (20.0-51.0); MEAN CELL VOLUME 90 fl (80.0-100.0); MEAN CORPUSCULAR HEMOGLOBIN 28 pg (27.0-31.0); MEAN CORPUSCULAR HGB CONC 32 g/dl (33.0-37.0); MEAN PLATELET VOLUME 9.8 fl (7.4-10.4); MONO # 0.9 (0.1-0.6); MONO % 10.5 % (1.7-9.3); PLATELET COUNT 224 K/mm3 (130-400); RED BLOOD COUNT 4.24 M/mm3 (4.10-5.30); REDCELL DISTRIBUTION WIDTH-CV 14.1 % (11.5-14.5)
[2019-03-13 16:41] LABS: ALANINE AMINOTRANSFERASE 17 U/L (9-52); ALBUMIN 4.1 gm/dL (3.5-5.0); ALKALINE PHOSPHATASE 79 U/L (50-136); ANION GAP 8 mmol/L (7-16); AST,SGOT 25 U/L (15-37); BILIRUBIN,TOTAL 0.5 mg/dL (0.0-1.0); BLOOD UREA NITROGEN 40 mg/dL (7-17); CALCIUM 10.1 mg/dL (8.4-10.2); CARBON DIOXIDE 26 mmol/L (22-30); CHLORIDE 104 mmol/L (98-107); CREATININE, serum 1.98 (0.52-1.25); GLUCOSE 233 mg/dL (74-106); POTASSIUM 4.1 mmol/L (3.4-5.0); SODIUM 139 mmol/L (137-145); TOTAL PROTEIN 6.9 gm/dL (6.4-8.2)
[2019-03-13 16:43] LABS: C-REACTIVE PROTEIN < 0.5 mg/dL (0.0-0.9)
[2019-03-13 17:00] LABS: TROPONIN-I < 0.012 ng/mL (0.000-0.035)
[2019-03-13 17:06] LABS: COLLECTION METHOD CLEAN CATCH
[2019-03-13 17:13] LABS: MUCOUS Present /lpf; PH 5 (5-8); URINE APPEARANCE Clear; URINE BACTERIA None Seen /hpf; URINE BILIRUBIN Negative (NEGATIVE); URINE BLOOD Negative (NEGATIVE); URINE COLOR Straw; URINE GLUCOSE Negative (NEGATIVE); URINE KETONE Negative (NEGATIVE); URINE LEUKOCYTE ESTERASE 1+ (NEGATIVE); URINE NITRATE Negative (NEGATIVE); URINE PROTEIN(semi-quant) Negative (NEGATIVE); URINE RBC 0-2 /hpf; URINE UROBILINOGEN Negative (NEGATIVE)
[2019-03-13] MEDS ORDERED: MACROBID 1100 MG/CAP PO (17:50)
[2019-03-13 18:30] VITALS: BP 149/55; PULSE 69; TEMP 98.6
== END 2019-03-13 18:30 | disposition home or self-care (01) ==
LOC: COL.ER 14:45
PROVIDERS: Emergency Medicine
DX: N39.0 Urinary tract infection, site not specified (principal); E11.9 Type 2 diabetes mellitus without complications; I10 Essential (primary) hypertension; E11.22 Type 2 diabetes mellitus with diabetic chronic kidney disease; I12.9 Hypertensive chronic kidney disease with stage 1 through stage 4 chronic kidney disease, or unspecified chronic kidney disease; N18.9 Chronic kidney disease, unspecified; Z79.4 Long term (current) use of insulin; Z79.82 Long term (current) use of aspirin; Z79.51 Long term (current) use of inhaled steroids
CPT/HCPCS: J7030

== ENCOUNTER 2019-04-19 13:12 | Emergency (ER) | payer MEDICARE, OTHER ==
[~2019-04-19] VITALS: Ht 157.5 cm; Wt 89.5 kg
[~2019-04-19 13:12] MED LIST changes: +MACROBID 1100 MG/CAP PO
[2019-04-19 13:36] VITALS: BP 197/76; TEMP 97.7
[2019-04-19] MEDS ORDERED: LIDODERM 5% PATC1 EA TP (14:40)
[2019-04-19] MEDS ORDERED: VOLTAREN GEL 1%1 TU TP (14:40)
[2019-04-19 15:00] VITALS: PULSE 72
== END 2019-04-19 15:05 | disposition home or self-care (01) ==
LOC: COL.ER 13:12
DX: M54.17 Radiculopathy, lumbosacral region (principal); I10 Essential (primary) hypertension; E11.9 Type 2 diabetes mellitus without complications; Z79.82 Long term (current) use of aspirin; Z79.51 Long term (current) use of inhaled steroids; Z90.89 Acquired absence of other organs; Z79.4 Long term (current) use of insulin; Z98.51 Tubal ligation status

== ENCOUNTER 2019-06-20 09:09 | Inpatient (IN) | payer MEDICARE, OTHER ==
[~2019-06-20] VITALS: Ht 157.5 cm; Wt 92.8 kg
[2019-06-20] VITALS (399 sets, daily range): BP systolic 180–196; BP diastolic 60–73; PULSE 73–76; TEMP 98.1; O2SAT 85–100
[2019-06-20 10:20] LABS: HEMOGLOBIN 11.2 g/dl (12.5-16.0); MEAN CELL VOLUME 91 fl (80.0-100.0); MEAN CORPUSCULAR HEMOGLOBIN 29 pg (27.0-31.0); MEAN CORPUSCULAR HGB CONC 32 g/dl (33.0-37.0); MEAN PLATELET VOLUME 9.6 fl (7.4-10.4); PLATELET COUNT 276 K/mm3 (130-400); RED BLOOD COUNT 3.84 M/mm3 (4.10-5.30); REDCELL DISTRIBUTION WIDTH-CV 13.7 % (11.5-14.5)
[2019-06-20 10:28] LABS: HEMATOCRIT 34.9 % (37.0-47.0)
[2019-06-20 11:17] LABS: BAND 5 % (0-10); EOSINOPHIL 2 % (0-4); LYMPHOCYTE 9 % (20.0-51.0); NEUTROPHILS 77 % (42.0-75.2)
[2019-06-20 11:18] LABS: PLATELET ESTIMATE NORMAL (NORMAL); TOXIC GRANULATION PRESENT
[2019-06-20 11:23] LABS: ALANINE AMINOTRANSFERASE 22 U/L (4-34); ALBUMIN 3.6 gm/dL (3.5-5.0); ALKALINE PHOSPHATASE 92 U/L (50-136); ANION GAP 4 mmol/L (7-16); AST,SGOT 24 U/L (15-37); BILIRUBIN,TOTAL 0.9 mg/dL (0.0-1.0); BLOOD UREA NITROGEN 34 mg/dL (7-17); CARBON DIOXIDE 26 mmol/L (22-30); CHLORIDE 108 mmol/L (98-107); CREATININE, serum 1.44 (0.52-1.25); GLUCOSE 106 mg/dL (74-106); POTASSIUM 4.3 mmol/L (3.4-5.0); SODIUM 138 mmol/L (137-145); TOTAL PROTEIN 6.8 gm/dL (6.4-8.2)
[2019-06-20 11:28] LABS: COLLECTION METHOD CATHETER
[2019-06-20 11:33] LABS: C-REACTIVE PROTEIN 15.6 mg/dL (0.0-0.9); TROPONIN-I < 0.012 ng/mL (0.000-0.035)
[2019-06-20 11:51] LABS: AMORPHOUS CRYSTAL Present /uL; MUCOUS Present /lpf; PH 5 (5-8); SQUAMOUS EPITHELIAL 0-2 /hpf; URINE APPEARANCE Hazy; URINE BACTERIA Rare /hpf; URINE BILIRUBIN Negative (NEGATIVE); URINE BLOOD Negative (NEGATIVE); URINE COLOR Yellow; URINE GLUCOSE Negative (NEGATIVE); URINE KETONE Negative (NEGATIVE); URINE LEUKOCYTE ESTERASE Negative (NEGATIVE); URINE NITRATE Negative (NEGATIVE); URINE PROTEIN(semi-quant) 2+ (NEGATIVE); URINE RBC None Seen /hpf; URINE UROBILINOGEN Negative (NEGATIVE)
--- NOTE | 2019-06-20 14:45 | NUR ---
Patient to room EU 11 by cart from ER. Patient assisted by nurse to bed. A&O, dyspnea with exertion, rest and talking. 2L NC O2. VSS. BP hypertensive, doctor aware. Assessment complete. Nurse oriented patient to room, bed and call light. Avila dependent drainage, clear yellow. Droplet and contact precautions in place. Covid 19 pending. No further needs expressed from patient. Call light within reach
[2019-06-20] MEDS ORDERED: COREG12.5 MG PO (15:28)
[2019-06-20] MEDS ORDERED: LEVEMIR FLEX100 U/ML SQ (16:38)
[2019-06-20] MEDS ORDERED: NOVOLOG FLEX100 U/ML SQ (16:40)
[2019-06-20] MEDS ORDERED: LEVSIN0.125 M1 PO (17:29)
[2019-06-20] MEDS ORDERED: ATROVENT NASAL15 ML NS (17:31)
[2019-06-20] MEDS ORDERED: PROMETHAZINE D473 ML PO (17:31)
[2019-06-20] MEDS ORDERED: PROAIR HFA0.09 MG/AC IH (17:33)
--- NOTE | 2019-06-20 18:06 | NUR ---
Patient sitting up in bed eating dinner. A&Ox3.VSS. 2L NC O2, dyspnea with rest and exertion. Has been sleeping since being admitted to the floor. Easily awakened. Pillow right side, coccyx red. Avila dependent drainage, clear yellow. Droplet and contact precautions in place. No further needs expressed from patient. Call light within reach
[2019-06-21] VITALS (1136 sets, daily range): BP systolic 155–175; BP diastolic 53–84; PULSE 59–78; TEMP 97.7–98.8; O2SAT 76–98
--- NOTE | 2019-06-21 06:36 | NUR ---
Patient noted to cough frequently throughout the shift. No sputum noted. Continues on 2L via nasal cannula. Oxygen saturations remain above 90%. Bilateral 3+ pitting edema to lower legs. IV antibiotics administered as ordered. Avila draining yellow urine. Some sediment noted. Patient stated a headache and PRN Tylenol was given. This was effective. Patient was able to get some sleep about midnight last night. Appears very tired. Noted to have bilateral expiratory wheezes to lungs. Patient denies any further needs. Will continue to monitor.
--- NOTE | 2019-06-21 08:00 | NUR ---
Patient resting in bed at this time. Patient is alert and oriented, answers questions appropriately. Patient has a non productive cough, reminded to provide speutum sample if she is able. Patient denies needs at this time, call light within reach.
[2019-06-21 08:31] LABS: PATHOLOGY DIFF REVIEW OK
[2019-06-21 09:48] LABS: BASO % 0.2 % (0.0-2.0); GRAN # 9.5 (1.4-6.5); GRAN % 81.3 % (42.2-75.2); HEMOGLOBIN 10.2 g/dl (12.5-16.0); LYMPH % 8.9 % (20.0-51.0); MEAN CELL VOLUME 92 fl (80.0-100.0); MEAN CORPUSCULAR HEMOGLOBIN 29 pg (27.0-31.0); MEAN CORPUSCULAR HGB CONC 32 g/dl (33.0-37.0); MONO # 1.1 (0.1-0.6); PLATELET COUNT 260 K/mm3 (130-400); RED BLOOD COUNT 3.53 M/mm3 (4.10-5.30); REDCELL DISTRIBUTION WIDTH-CV 13.7 % (11.5-14.5)
[2019-06-21 09:51] LABS: HEMATOCRIT 32.3 % (37.0-47.0)
[2019-06-21 09:52] LABS: CALCIUM 9.6 mg/dL (8.4-10.2); CREATININE, serum 1.49 (0.52-1.25); MAGNESIUM 2.5 mg/dL (1.6-2.3); POTASSIUM 4.6 mmol/L (3.4-5.0)
--- NOTE | 2019-06-21 14:01 | NUR ---
Bung Driver was called in to speak to patient. Had a good talk no other needs right now.
--- NOTE | 2019-06-21 15:10 | NUR ---
Auto Service Mechanic contacted patient by phone to complete initial intake as patient is a PUI. Patient lives in [place] at [facility] and reports she has been there since 2013. Patient plans to return to [place] upon discharge. Patient receives primary care and most medications from . [place]. Patient also sometimes uses [facility] [place]. Patient reports a staff member from [facility] assists her in picking up her medications. Patient uses public transportation to get to her appointments on [place]. Patient uses a cane in her apartment and her walker when she goes anywhere. Patient reports independence with ADLS but states staff at [facility] assist her with her eye medication. Patient has DPOA-HC located in [facility] which designates her sister, Rebecca (ph#[phone]). Patient reports she has been having some issues with her CPAP mask but does not know if [facility] can come see her right now during the pandemic. TRINY followed up with [facility] who advised that upon discharge they can go to [facility] to address the issue. TRINY contacted Lorraine at [facility] to provide update on CPAP. TRINY also faxed clinical updates to fax#[phone]. TRINY contacted patient's sister, Rebecca to provide update. Rebecca is concerned about patient's respiratory issues and wants to know if patient was tested for COVID19. TRINY advised patient was tested and results are still pending. SW to continue to ensure safe discharge.
--- NOTE | 2019-06-21 19:17 | NUR ---
Patient eating dinner at this time. Patient denies pain or needs, call light within reach.
--- NOTE | 2019-06-21 20:30 | NUR ---
Pt. sitting up in bed at this time. Pt. is A&OX3, assessment complete. INT to rt. ac patent. Pt. denies pain or other needs, call light within reach.
--- NOTE | 2019-06-21 22:06 | NUR ---
PT ON COVID ISOLATION. PT NOT GIVEN A CPAP THE COVID TEST MUST COME BACK NEGATIVE TO GIVE PT A HOME CPAP TO USE WHILE HERE IN THE HOSPITAL. PT IS ON 2 LPM JESSI WELL WITH NO DISTRESS NOTED AT THIS TIME. WILL CONTONUE TO MONITOR AND ASSESS.
--- NOTE | 2019-06-21 23:43 | NUR ---
NOTIFIED SUKHJINDER JARAMILLO OF PT'S COVID TEST NEGATIVE. NEW ORDERS RECEIVED. LAUNCHMAN NOTIFIED.
[2019-06-22] VITALS (685 sets, daily range): BP systolic 139–180; BP diastolic 43–55; PULSE 52–67; TEMP 97.7–98.5; O2SAT 83–99
--- NOTE | 2019-06-22 09:04 | NUR ---
Pt assessment complete. Pt is sitting up in bed upon entry, she is alert and oriented but occasionally is forgetful thinking she came in to the facility today, speaking as if [facility]. Pt reports some pain to her eye and L shoulder, PRN Tylenol administered and scheduled Lidocaine patch placed to L shoulder. Denies SOB, occasional cough present. Pt currently on 1L O2 via NC. Austin HYATT. Breakfast set up for patient. No needs at this time. Call light within reach.
--- NOTE | 2019-06-22 09:59 | NUR ---
Pt's O2 sats ~94%, taken off of oxygen, maintaining sat >92%. Will continue to monitor.
--- NOTE | 2019-06-22 19:34 | NUR ---
Patient is alert and oriented. NS on telemetry. +1 BLE edema, no fever, on Room Air, no cough, on Avila Catherer. negative covid test. [facility]
--- NOTE | 2019-06-22 21:00 | NUR ---
Pt. sitting up in bed. Pt. is A&OX3, assessment complete. INT to rt. ac patent. Pt. denies pain or other needs, call light within reach.
[2019-06-23 00:05] VITALS: BP 175/49; PULSE 69; TEMP 98.5
[2019-06-23 03:12] VITALS: BP 166/52; PULSE 64; TEMP 98.3
[2019-06-23 07:07] LABS: BASO % 0.2 % (0.0-2.0); EOS # 0.1 (0.0-0.7); EOS % 0.7 % (0-4.0); GRAN # 8.1 (1.4-6.5); GRAN % 67.5 % (42.2-75.2); HEMOGLOBIN 10.7 g/dl (12.5-16.0); LYMPH # 2.5 (1.2-3.4); LYMPH % 21.1 % (20.0-51.0); MEAN CELL VOLUME 91 fl (80.0-100.0); MEAN CORPUSCULAR HEMOGLOBIN 29 pg (27.0-31.0); MEAN CORPUSCULAR HGB CONC 32 g/dl (33.0-37.0); MEAN PLATELET VOLUME 9.7 fl (7.4-10.4); MONO # 1.2 (0.1-0.6); MONO % 10.1 % (1.7-9.3); PLATELET COUNT 293 K/mm3 (130-400); RED BLOOD COUNT 3.67 M/mm3 (4.10-5.30); REDCELL DISTRIBUTION WIDTH-CV 13.2 % (11.5-14.5)
[2019-06-23 07:10] LABS: HEMATOCRIT 33.3 % (37.0-47.0)
[2019-06-23 07:12] LABS: CALCIUM 9.6 mg/dL (8.4-10.2); CREATININE, serum 1.67 (0.52-1.25); POTASSIUM 4.3 mmol/L (3.4-5.0)
[2019-06-23 07:36] VITALS: BP 175/43; PULSE 62; TEMP 97.6
[2019-06-23 11:49] VITALS: BP 174/53; PULSE 62; TEMP 98.5
--- NOTE | 2019-06-23 13:36 | NUR ---
Patient's nurse approached [facility] and inquired about penitentiary for this patient. Patient currently resides at [facility]. SW did contact [facility] to inquire about services and spoke to abundio who indicated that [facility] would be able to provide physical therapy services if medically necessary under medicare plan B, but patient jimmie have to transfer to [facility] or [facility] for skilled care. SW informed patients nurse and inqured about provider recommendations. None have been recommended currently. Potential discharge on 06/22. [facility] will continue to follow.
[2019-06-23 15:56] VITALS: BP 135/88; PULSE 57; TEMP 97.5
--- NOTE | 2019-06-23 19:26 | NUR ---
PATIENT RESTING IN BED DURING CHANGE OF SHIFT REPORT FROM DAY SHIFT NURSEANH. PATIENT REQUESTING TYLENOL WITH HAS MEDS WITH NO OTHER NEEDS REPORTED.
[2019-06-23 20:52] VITALS: BP 179/55; PULSE 63; TEMP 98.2
[2019-06-24] VITALS (7 sets, daily range): BP systolic 134–185; BP diastolic 41–58; PULSE 51–92; TEMP 97.4–98.9
--- NOTE | 2019-06-24 00:21 | NUR ---
PATIENT REQUESTED AND GIVEN SPUTUM SPECIMEN CUP FOR PATIENT TO USE IN AM IF ABLE TO OBTAIN ADEQUATE AMOUNT OF SPUTUM TO COLLECT FOR TESTING. NO OTHER NEEDS REPORTED.
--- NOTE | 2019-06-24 02:42 | NUR ---
REQUESTED AND GIVEN TYLENOL, SEE eMAR AND REPORTED GOT TOO WARM WITH HEATING PAD ON/HAD PAD REMOVED. DENIED ANY OTHER NEEDS CURRENTLY.
[2019-06-24 05:26] LABS: BASO % 0.2 % (0.0-2.0); EOS # 0.1 (0.0-0.7); EOS % 0.6 % (0-4.0); GRAN # 7.3 (1.4-6.5); GRAN % 65.6 % (42.2-75.2); HEMOGLOBIN 10.7 g/dl (12.5-16.0); LYMPH # 2.5 (1.2-3.4); LYMPH % 22.1 % (20.0-51.0); MEAN CELL VOLUME 91 fl (80.0-100.0); MEAN CORPUSCULAR HEMOGLOBIN 29 pg (27.0-31.0); MEAN CORPUSCULAR HGB CONC 32 g/dl (33.0-37.0); MEAN PLATELET VOLUME 9.8 fl (7.4-10.4); MONO # 1.2 (0.1-0.6); MONO % 10.7 % (1.7-9.3); PLATELET COUNT 290 K/mm3 (130-400); RED BLOOD COUNT 3.71 M/mm3 (4.10-5.30); REDCELL DISTRIBUTION WIDTH-CV 13.2 % (11.5-14.5)
[2019-06-24 05:29] LABS: HEMATOCRIT 33.6 % (37.0-47.0)
[2019-06-24 05:39] LABS: CALCIUM 9.7 mg/dL (8.4-10.2); CREATININE, serum 1.87 (0.52-1.25); POTASSIUM 4.5 mmol/L (3.4-5.0)
--- NOTE | 2019-06-24 06:11 | NUR ---
C/O UPSET STOMACH, DIET SPRITE GIVEN, NO OTHER NEEDS REPORTED.
--- NOTE | 2019-06-24 07:30 | NUR ---
PATIENT RESTING IN BED DURING CHANGE OF SHIFT REPORT GIVEN TO DAY SHIFT NURSEMALISSA. TELEMETRY CONTINUED, REQUESTED THAT PROVIDERS NEED TO WRITE RX FOR INHALERS WHEN SHE IS GOING HOME.
--- NOTE | 2019-06-24 11:24 | NUR ---
First visit from the protocol officer. No needs right now.
--- NOTE | 2019-06-24 11:44 | NUR ---
Patient is alert and oriented. complain of mild headache, left hip and bilateral lower extremity pain. BP dropped to 82/63, HR 54, not symptomatic. rechecked 2 minutes later BP162/51, HR 55. SUKHJINDER Forrest was informed of Hemodynamic fluctuation.
--- NOTE | 2019-06-24 14:25 | NUR ---
PT is recommending post acute rehab. SW met with the patient is open to post acute rehab. The patient would like to send a referral to [facility]. TRINY informed CHLOÉ Huber Director. Will continue to monitor.
--- NOTE | 2019-06-24 18:04 | NUR ---
Patient had one episode of tearful moment caused by left hip pain, bilateral lower extremity pain. PA was informed. Bilateral duplex doppler was ordered. patient said the hip pain was resolved with heating pad. IPR consult, IPR nurse informed. Call light beside patient.
--- NOTE | 2019-06-24 21:19 | NUR ---
Pt currently lying in bed. Pt took all night medications well. Pt requested ice water and she was given water at this time. Pt heart rate has been low while sleeping her heart rate is currently 54. Her lungs sounds were clear and heart sounds were normal S1 and S2 sounds but was latrice. A crusted area on the pt leg was noted but pt stated this area has been on her leg for over a year. She has her call light within reach and her bed is in lowest position.
--- NOTE | 2019-06-24 23:44 | NUR ---
Pt called out and requested to get out of bed. She seemed a little confused. Pt midnignt medication was given at this time. Pt ambulated to the restroom and is currently back in bed. Pt blood pressure was 179/44 so will come back once patient has settled in bed and recheck her blood pressure. Pt has her call light within reach and her bed is in lowest position.
--- NOTE | 2019-06-25 00:52 | NUR ---
Pt called out requesting to use the restroom. Pt is back in bed and her call light is within reach and bed in lowest position.
[2019-06-25 01:15] VITALS: BP 162/57; PULSE 54; TEMP 98
--- NOTE | 2019-06-25 01:18 | NUR ---
Pt current blood pressure is 162/57. She just ambulated to the bathroom she is now back in bed with her call light within reach.
[2019-06-25 04:00] VITALS: BP 162/44; PULSE 60; TEMP 97.7
--- NOTE | 2019-06-25 05:44 | NUR ---
Pt has frequently called during the night for the bathroom. She stated she just feels like she really has to go a lot. Pt has had some pain on her left hip. Pt did have a heat pad on her left him but she stated that it was not helping. She asked if it was something that I could get her for pain. Pt was given Tylenol at this time. Pt is currently in bed at this time and she has her call light within reach. While ambulating the the bathroom she was a standby assist.
[2019-06-25 06:33] LABS: CALCIUM 9.8 mg/dL (8.4-10.2); POTASSIUM 4.7 mmol/L (3.4-5.0)
[2019-06-25 06:49] LABS: CREATININE, serum 1.54 (0.52-1.25)
--- NOTE | 2019-06-25 07:21 | NUR ---
Reported off to DRE Garza. Pt is currently sitting in her chair. Call light within reach.
[2019-06-25 08:03] VITALS: BP 158/59; PULSE 51; TEMP 98.2
--- NOTE | 2019-06-25 09:01 | NUR ---
Pt awake and alert upon entry, sitting up in the recliner, talkative and appropriate, shift assessments complete, left pt sitting in recliner, call light in reach.
--- NOTE | 2019-06-25 10:13 | NUR ---
The patient has been accecpted to [facility]. Cecile, IPR Director requested extra clothes for the patient. TRINY contacted Lorraine at [facility] and requested extra clothes. She will bring them to the ED entrance and drop them off. TRINY contacted the patient's sister, Rebecca to inform her. Will continue to monitor.
[2019-06-25 10:57] VITALS: BP 153/53; PULSE 53; TEMP 98
--- NOTE | 2019-06-25 11:05 | NUR ---
Pt discharged to [facility]. Pt moved rooms from 330 to 336.
[2019-06-25] MEDS ORDERED: OMNICEF 300MG300 MG PO (12:20)
[2019-06-25] MEDS ORDERED: APRESOLINE 25MG25 MG PO (12:21)
[2019-06-25] MEDS ORDERED: LASIX 20MG TABL20 MG PO (12:23)
[2019-06-25] MEDS ORDERED: PREDNISONE10 MG PO (12:28)
--- NOTE | 2019-06-25 13:54 | NUR ---
Pt discharged to [facility].
== END 2019-06-25 13:55 | DRG 193 ==
LOC: COL.ER 09:09 → EU 13:02 → JCC 06-22 14:48
PROVIDERS: Family Medicine; Internal Medicine; Physician Assistant; ADMIT Student in an Organized Health Care Education/Training Program
DX: J18.9 Pneumonia, unspecified organism (principal); J96.21 Acute and chronic respiratory failure with hypoxia; I50.30 Unspecified diastolic (congestive) heart failure; E78.5 Hyperlipidemia, unspecified; I48.0 Paroxysmal atrial fibrillation; E11.22 Type 2 diabetes mellitus with diabetic chronic kidney disease; N18.9 Chronic kidney disease, unspecified; G47.33 Obstructive sleep apnea (adult) (pediatric); J45.909 Unspecified asthma, uncomplicated; M79.7 Fibromyalgia; I11.0 Hypertensive heart disease with heart failure; Z20.828 Contact with and (suspected) exposure to other viral communicable diseases; K21.9 Gastro-esophageal reflux disease without esophagitis; H35.30 Unspecified macular degeneration; Z87.440 Personal history of urinary (tract) infections; Z90.49 Acquired absence of other specified parts of digestive tract; Z98.51 Tubal ligation status; Z79.82 Long term (current) use of aspirin
CPT/HCPCS: 99223-AI; 99232-AI; 99233-AI; 99239; J0456; J0692; J0696; J1644; J1815; J1940; J7050; J7512

== ENCOUNTER → 2019-07-18 | Outpatient (CLI) | payer MEDICARE, OTHER ==
[~2019-07-18] MED LIST changes: +A & D OINT TUBE60 GM TOP; +APRESOLINE 25MG25 MG PO; +ATROVENT NASAL15 ML NS; +AVELOX 400MG T400 MG PO; +CVS GLUCOSE BIT1 CTB PO; +FLONASE NASAL S16 GM NAS; +LEVSIN0.125 M1 PO; +NYSTATIN POWDER30 GM TOP; +PRESERVISION AREDS 2; +PROMETHAZINE D473 ML PO; +ZOFRAN 4MG T4 MG/TAB PO; +[UNRECOGNIZED DRUG - OTHER]
[2019-07-18 12:20] LABS: CALCIUM 9.7 mg/dL (8.4-10.2); CREATININE, serum 1.64 (0.52-1.25); POTASSIUM 4.8 mmol/L (3.4-5.0)
== END ==
LOC: ZCOL.LAB 11:30
PROVIDERS: Internal Medicine
DX: J69.0 Pneumonitis due to inhalation of food and vomit (principal)

== ENCOUNTER 2019-07-21 03:42 | Inpatient (IN) | payer MEDICARE, OTHER ==
[~2019-07-21] VITALS: Ht 157.5 cm; Wt 92.6 kg
[2019-07-21] VITALS (947 sets, daily range): BP systolic 119–163; BP diastolic 39–88; PULSE 47–59; TEMP 97.5–98.2; O2SAT 81–100
[2019-07-21 04:05] LABS: HEMOGLOBIN 10.6 g/dl (12.5-16.0); MEAN CELL VOLUME 91 fl (80.0-100.0); MEAN CORPUSCULAR HEMOGLOBIN 29 pg (27.0-31.0); MEAN CORPUSCULAR HGB CONC 32 g/dl (33.0-37.0); PLATELET COUNT 336 K/mm3 (130-400); RED BLOOD COUNT 3.64 M/mm3 (4.10-5.30); REDCELL DISTRIBUTION WIDTH-CV 12.8 % (11.5-14.5)
[2019-07-21 04:06] LABS: HEMATOCRIT 33.2 % (37.0-47.0)
[2019-07-21 04:13] LABS: ALANINE AMINOTRANSFERASE 27 U/L (4-34); ALBUMIN 3.6 gm/dL (3.5-5.0); ALKALINE PHOSPHATASE 97 U/L (50-136); ANION GAP 9 mmol/L (7-16); AST,SGOT 26 U/L (15-37); BILIRUBIN,TOTAL 0.7 mg/dL (0.0-1.0); BLOOD UREA NITROGEN 43 mg/dL (7-17); CALCIUM 10.1 mg/dL (8.4-10.2); CARBON DIOXIDE 28 mmol/L (22-30); CREATININE, serum 1.78 (0.52-1.25); GLUCOSE 139 mg/dL (74-106); INR 0.9 (0.8-3.0); POTASSIUM 4.6 mmol/L (3.4-5.0); PROTHROMBIN TIME 10.5 SECONDS (9.7-12.8); SODIUM 124 mmol/L (137-145); TOTAL PROTEIN 6.6 gm/dL (6.4-8.2)
[2019-07-21 04:14] LABS: CHLORIDE 88 mmol/L (98-107)
[2019-07-21 04:30] LABS: EOSINOPHIL 1 % (0-4); LYMPHOCYTE 9 % (20.0-51.0); NEUTROPHILS 76 % (42.0-75.2); PLATELET ESTIMATE NORMAL (NORMAL)
[2019-07-21 04:32] LABS: TROPONIN-I < 0.012 ng/mL (0.000-0.035)
[2019-07-21 05:23] LABS: ARTERIAL BLD GAS O2 SATURATION 91.2 % (92-100); ARTERIAL BLOOD GAS BASE EXCESS -1.4 (-2-2); ARTERIAL BLOOD GAS HCO3 25.4 meq/L (22-26); ARTERIAL BLOOD GAS PCO2 52.2 mmHg (35-45); ARTERIAL BLOOD GAS PO2 66.6 mmHg (80-100); ARTERIAL BLOOD GAS pH 7.31 (7.35-7.45)
--- NOTE | 2019-07-21 05:52 | NUR ---
Patient arrives at this time via ED cart. Patient moved to unit bed via slide with assistance of 3 staff. Patient is on BiPAP. Initial admission complete. Patient has no belongings with her except for a shirt. Did not bring glasses with her. Patient attached to unit monitoring equipment and vitals obtained.
[2019-07-21 06:25] LABS: CALCIUM 10.1 mg/dL (8.4-10.2); CREATININE, serum 1.84 (0.52-1.25); POTASSIUM 4.8 mmol/L (3.4-5.0)
--- NOTE | 2019-07-21 06:35 | NUR ---
MARI Snowden at bedside at this time.
[2019-07-21 07:13] LABS: ARTERIAL BLD GAS O2 SATURATION 96.5 % (92-100); ARTERIAL BLD GAS TCO2 CT 29.7; ARTERIAL BLOOD GAS BASE EXCESS 0.8 (-2-2); ARTERIAL BLOOD GAS HCO3 27.9 meq/L (22-26); ARTERIAL BLOOD GAS PCO2 56.9 mmHg (35-45); ARTERIAL BLOOD GAS PO2 84.9 mmHg (80-100); ARTERIAL BLOOD GAS pH 7.31 (7.35-7.45)
[2019-07-21] MEDS ORDERED: TYLENOL SU650 MG/SUP RC (07:23)
[2019-07-21] MEDS ORDERED: ARTIFICIAL TEAR15 M7 OP (07:25)
[2019-07-21] MEDS ORDERED: GENTLE LAXATIVE10 MG RC (07:28)
--- NOTE | 2019-07-21 07:30 | NUR ---
Bedside report given to DRE Caruso. Transfer of care at this time.
[2019-07-21] MEDS ORDERED: DEBROX OT (07:32)
[2019-07-21] MEDS ORDERED: IMODIUM 2MG CAPS2 MG PO (07:38)
[2019-07-21] MEDS ORDERED: MELATONIN5 M1 SL (07:48)
[2019-07-21] MEDS ORDERED: MILK OF MA400 MG/52 PO (07:49)
[2019-07-21] MEDS ORDERED: MYLANTA MAXIMU355 M1 PO (07:50)
[2019-07-21 09:07] LABS: CALCIUM 10.2 mg/dL (8.4-10.2); CREATININE, serum 1.81 (0.52-1.25); POTASSIUM 4.8 mmol/L (3.4-5.0)
--- NOTE | 2019-07-21 09:34 | NUR ---
PT'S GUEST SERVICE MANAGER PRESENT TO PRAY WITH PATIENT.
[2019-07-21 11:10] LABS: CALCIUM 9.8 mg/dL (8.4-10.2); CREATININE, serum 1.78 (0.52-1.25); POTASSIUM 4.6 mmol/L (3.4-5.0)
--- NOTE | 2019-07-21 11:15 | NUR ---
DR NUÑEZ AND DR MORALEZ PRESENT TO SEE PATIENT.
[2019-07-21 12:31] LABS: CALCIUM 9.7 mg/dL (8.4-10.2); CREATININE, serum 1.81 (0.52-1.25); POTASSIUM 4.8 mmol/L (3.4-5.0)
[2019-07-21 15:03] LABS: ARTERIAL BLD GAS O2 SATURATION 90.8 % (92-100); ARTERIAL BLD GAS TCO2 CT 29.4; ARTERIAL BLOOD GAS BASE EXCESS 1.9 (-2-2); ARTERIAL BLOOD GAS HCO3 27.9 meq/L (22-26); ARTERIAL BLOOD GAS PO2 58.3 mmHg (80-100); ARTERIAL BLOOD GAS pH 7.36 (7.35-7.45)
--- NOTE | 2019-07-21 15:45 | NUR ---
PT TAKEN OFF BIPAP AND SWITCHED TO NASAL CANNULA TO GIVE HER A BREAK.
--- NOTE | 2019-07-21 16:23 | NUR ---
PT'S SISTER HAS ARRIVED TO VISIT WITH PATIENT.
[2019-07-21 19:25] LABS: CALCIUM 9.7 mg/dL (8.4-10.2); CREATININE, serum 1.82 (0.52-1.25); POTASSIUM 4.8 mmol/L (3.4-5.0)
[2019-07-22] VITALS (772 sets, daily range): BP systolic 142–150; BP diastolic 44–57; PULSE 52–67; TEMP 98–98.4; O2SAT 83–100
[2019-07-22 05:59] LABS: BASO % 0.2 % (0.0-2.0); GRAN # 4.2 (1.4-6.5); GRAN % 83.2 % (42.2-75.2); LYMPH # 0.7 (1.2-3.4); LYMPH % 14.4 % (20.0-51.0); MEAN CELL VOLUME 89 fl (80.0-100.0); MEAN CORPUSCULAR HGB CONC 32 g/dl (33.0-37.0); MONO # 0.1 (0.1-0.6); MONO % 1.8 % (1.7-9.3); PLATELET COUNT 270 K/mm3 (130-400); RED BLOOD COUNT 3.13 M/mm3 (4.10-5.30); REDCELL DISTRIBUTION WIDTH-CV 12.8 % (11.5-14.5)
[2019-07-22 06:01] LABS: HEMATOCRIT 27.9 % (37.0-47.0); HEMOGLOBIN 8.9 g/dl (12.5-16.0); MEAN CORPUSCULAR HEMOGLOBIN 28 pg (27.0-31.0)
[2019-07-22 06:11] LABS: CALCIUM 9.2 mg/dL (8.4-10.2); CREATININE, serum 1.87 (0.52-1.25); POTASSIUM 4.4 mmol/L (3.4-5.0)
--- NOTE | 2019-07-22 07:00 | NUR ---
BEDSIDE REPORT RECEIVED FROM DRE EDWARD. PATIENT CURRENTLY ON NASAL CANNULA. SHE SHOWS NO S/S DISTRESS. WILL CONTINUE TO MONITOR.
--- NOTE | 2019-07-22 10:08 | NUR ---
TRINY attended clinical rounds with the team. Pallative care nurse, Zulma Dunlap present during rounds. Hospitalist discussed the rehospitizations with the patient and the issues of pneumonia with suspected aspiration. Hospice was also discussed. The patient states she is "not to fond of hospice," but "I am not objecting to it." The patient stated, "it might be a good idea and I have a neighbor [place] that does that." After continued discussion, the patient stated she is ready to transition to hospice. The patient would like to return to [facility] on hopsice. Zulma contaced the patient's sister/DPOA-HC and she was onboard with the patient's decision. TRINY contacted Brian at [facility] to inquire if they use a certain hopsice agency. They do not. Brian will find out this days transportation schedule and inform TRINY. TRINY and Zulma presented Medicare.gov's list of hopsice agencies to the patient and the patient's sister (via telephone). The [facility]. TRINY faxed referral. SW awaiting transport availablity and response from [facility].
--- NOTE | 2019-07-22 11:13 | NUR ---
I met with pt several times this morning. She is much more alert and positive then when I had worked with her during her last admission. She was pleased to tell me that she was feeling better this morning and yet she is tired of getting close to being better and then having the same thing happen over and over again. It is a lot of work to try to get better and never quite get. there. I also spoke with her sister Rebecca by phone once by myself and once with Lauren on the phone as well. Initially Rebecca was not ready yet to talk about Lauren going on hospice services but when we talked again with Lauren on the phone (after she had talked with Dr Boggs) she told Rebecca that she was ready to go on hospice--it is too hard to never get better even when you are trying hard. Pt reported that she would like to return to [facility] with hospice. She was presented with a list of hospice agencies serving this area and she chose [facility]. Nikky, her home health care social worker, has contacted [facility] and [facility] to advise of pt's decision and also [facility] to advise of desire for admission. per sister's request, Nikky has notified [facility] that pt will not return there and her room may be released. We will wait to see when pt can be transferred back to [facility] and when hospice can admit her. I did advise Lizzy ERICKSON of this plan and pt's request to be on comfort care. Comfort quilt was provided with explanation.
--- NOTE | 2019-07-22 14:31 | NUR ---
Lorraine RN from [facility] states they can transport the patient, 07/22 at approximately 1030am. TRINY informed the team. SW contacted [facility]. They attempted to contact [facility] to find the patient's PCP but could not get ahold of anyone. Therefore, they asked Dr. Dela Cruz to follow and they are waiting to hear back. Will continue to follow.
--- NOTE | 2019-07-22 16:28 | NUR ---
Karen from [facility] contacted SW and states that Dr. Dela Cruz will follow the patient's care. Will continue to monitor.
--- NOTE | 2019-07-22 20:00 | NUR ---
Received patient via stretcher from ICU. Patient is alert and oriented. She is on comfort care.Wth INT on left forearm. With smith catheter draining clear, yellow urine. Patient kept on saying she wants to get Tylenol every 4 hours. Informed her the next dose of Tylenol will be at 2300H. She requests for ice water on the bedside and it was provided. Pillow was maintained in between her legs. Turned patient on her left side and pillow was placed at the back. Call light within reach.
--- NOTE | 2019-07-22 20:02 | NUR ---
REPORT CALLED TO DRE LAWS ON MEDICAL FLOOR. PATIENT TAKEN TO ROOM 315 BY VAL NAPOLESSTATE INSPECTOR AND A DATA COLLECTION TECHNICIAN.
--- NOTE | 2019-07-22 23:00 | NUR ---
Tylenol given to patient as per request. Patient denies difficulty of breathing. Not in distress. She is on O2 at 2lpm via NC.
--- NOTE | 2019-07-23 03:52 | NUR ---
Asked patient if she wants some Tylenol. She said she still feels okay and not in pain. She just asked for an ice water.
--- NOTE | 2019-07-23 05:00 | NUR ---
Patient asked for an ice water and it was given to her. Not in distress.
--- NOTE | 2019-07-23 07:03 | NUR ---
Patient was doing well the whole night with some requests of Tylenol and ice water until this morning during shift change she's having a hard time breathing and saying she thinks she's dying. Called Dr. Krishnan for an order of Morphine. Patiend endorsed to Cash.
--- NOTE | 2019-07-23 08:43 | NUR ---
Patient is Comfort cares only, Morphine PRN for discomfort/ air hunger, I gave 2 Mg IV morphine for some dyspnea, she is now resting more comfortably, will continue to monitor
[2019-07-23] MEDS ORDERED: IPRATROPIUM BROM3 M1 IH (10:19)
[2019-07-23] MEDS ORDERED: TRANSDERM-0.5 MG/21 TD (10:21)
[2019-07-23] MEDS ORDERED: DULCOLAX S10 MG/SUPP RC (10:21)
[2019-07-23] MEDS ORDERED: ATIVAN 1MG T1 MG/TAB PO (10:23)
[2019-07-23] MEDS ORDERED: ROXANOL 20MG20 MG/ML SL (10:23)
--- NOTE | 2019-07-23 11:25 | NUR ---
First visit from the willower. No needs right now.
--- NOTE | 2019-07-23 11:32 | NUR ---
The patient is to discharge today, 07/22, back to [facility] on hospice [facility]. Transportation was scheduled at 1300, via [place]. TRINY informed the patient's RN, Karen at [facility], and the patient's sister (Rebecca). They were all agreeable to the time. Karen, at [facility], requested that the patient's scripts be sent to [facility]. TRINY contacted and faxed the patient's scripts to [facility]. No additional needs at this time.
--- NOTE | 2019-07-23 11:46 | NUR ---
I spoke with lauren' sister, Rebecca Choudhury, by phone this morning. She is struggling with her sister's decision but feels that Lauren was definite yesterday when Lauren made the decision to go with hospice services at [facility]. I shared with Rebecca that Lauren seemed to have made her decision yesterday and was extremely clear about what she wanted--which I had not seen from her before. Much support was provided to her. She has the phone numbers for [facility] and for [facility] to use in the future.
[2019-07-23 12:51] VITALS: BP 142/57; PULSE 65; TEMP 98.3
--- NOTE | 2019-07-23 13:50 | NUR ---
Patient is transferring back to [facility] with hospice care
== END 2019-07-23 13:53 | disposition hospice, home (50) | DRG 871 ==
LOC: COL.ER 03:42 → ICU 04:21 → MEDICAL 07-22 19:59
PROVIDERS: Emergency Medicine; Family Medicine; Internal Medicine Pulmonary Disease; Nurse Practitioner Family; ADMIT Hospitalist
DX: A41.9 Sepsis, unspecified organism (principal); J96.01 Acute respiratory failure with hypoxia; I50.23 Acute on chronic systolic (congestive) heart failure; J69.0 Pneumonitis due to inhalation of food and vomit; I13.0 Hypertensive heart and chronic kidney disease with heart failure and stage 1 through stage 4 chronic kidney disease, or unspecified chronic kidney disease; E87.2 Acidosis; E87.1 Hypo-osmolality and hyponatremia; J45.909 Unspecified asthma, uncomplicated; E78.5 Hyperlipidemia, unspecified; I27.20 Pulmonary hypertension, unspecified; Z51.5 Encounter for palliative care; G47.33 Obstructive sleep apnea (adult) (pediatric); E11.22 Type 2 diabetes mellitus with diabetic chronic kidney disease; K21.9 Gastro-esophageal reflux disease without esophagitis; M79.7 Fibromyalgia; R00.1 Bradycardia, unspecified; G89.29 Other chronic pain; M25.559 Pain in unspecified hip; Z66 Do not resuscitate; L89.152 Pressure ulcer of sacral region, stage 2; N18.3 Chronic kidney disease, stage 3 (moderate); H35.30 Unspecified macular degeneration; Z90.49 Acquired absence of other specified parts of digestive tract; Z98.51 Tubal ligation status
CPT/HCPCS: 99222-AI; 99233-AI; 99239; J0456; J1815; J1940; J2060; J2270; J2543; J2920; J3370; J7040; J7050